=== PATIENT | female | born 1940 | race Caucasian/White ===

== ENCOUNTER 2020-05-05 06:12 | Outpatient (REF) | payer MEDICARE, SELFPAY ==
[2020-05-05 08:24] LABS: Alanine Aminotransferase 15 U/L (0-31); Aspartate Amino Transferase 21 U/L (5-31); Cholesterol 168 mg/dL; HDL Cholesterol 54 mg/dL; LDL Cholesterol Calculated 103 mg/dl; Triglycerides 59 mg/dL
== END 2020-05-05 06:13 | disposition home or self-care (01) ==
LOC: HO.LAB 06:12
PROVIDERS: Visit Provider Internal Medicine
DX: E78.5 Hyperlipidemia, unspecified (principal); M85.852 Other specified disorders of bone density and structure, left thigh; I10 Essential (primary) hypertension
CPT/HCPCS: 80061; 84450; 84460

== ENCOUNTER 2020-09-29 06:12 | Outpatient (REF) | payer MEDICARE, SELFPAY ==
[2020-09-29 08:11] LABS: Alanine Aminotransferase 19 U/L (0-31); Anion Gap 11 (12-20); Aspartate Amino Transferase 24 U/L (5-31); Blood Urea Nitrogen 16 mg/dL (9-16); Calcium 9.2 mg/dL (8.4-10.2); Carbon Dioxide 30 mmol/L (22-29); Chloride 108 mmol/L (96-108); Cholesterol 162 mg/dL; Estimated Glomerular Filt Rate > 60; Glucose Fasting 96 mg/dL (60-99); HDL Cholesterol 53 mg/dL; LDL Cholesterol Calculated 97 mg/dl; Sodium 144 mmol/L (135-145); Triglycerides 64 mg/dL
[2020-09-29 08:36] LABS: Vitamin D 25-OH Total 62.9 ng/mL (>30)
== END 2020-09-29 06:13 | disposition home or self-care (01) ==
LOC: HO.LAB 06:12
PROVIDERS: PCP Internal Medicine; Visit Provider Internal Medicine
DX: I10 Essential (primary) hypertension (principal); E78.5 Hyperlipidemia, unspecified; Z78.0 Asymptomatic menopausal state
CPT/HCPCS: 36415; 80048; 80061; 82306; 84450; 84460

== ENCOUNTER 2021-05-10 06:46 | Outpatient (REF) | payer MEDICARE, SELFPAY ==
[2021-05-10 08:08] LABS: Alanine Aminotransferase 22 U/L (0-31); Anion Gap 12 (12-20); Aspartate Amino Transferase 26 U/L (5-31); Blood Urea Nitrogen 17 mg/dL (9-16); Calcium 9.5 mg/dL (8.4-10.2); Carbon Dioxide 29 mmol/L (22-29); Chloride 105 mmol/L (96-108); Cholesterol 178 mg/dL; Estimated Glomerular Filt Rate > 60; Glucose Fasting 91 mg/dL (60-99); HDL Cholesterol 52 mg/dL; LDL Cholesterol Calculated 109 mg/dl; Potassium 4.8 mmol/L (3.3-5.1); Sodium 141 mmol/L (135-145); Triglycerides 85 mg/dL
== END 2021-05-10 06:47 | disposition home or self-care (01) ==
LOC: HO.LAB 06:46
PROVIDERS: PCP Internal Medicine; Visit Provider Internal Medicine
DX: E78.5 Hyperlipidemia, unspecified (principal); I10 Essential (primary) hypertension; Z78.0 Asymptomatic menopausal state
CPT/HCPCS: 36415; 80048; 80061; 82306; 84450; 84460

== ENCOUNTER 2021-10-29 06:30 | Outpatient (REF) | payer MEDICARE, SELFPAY ==
[2021-10-29 07:45] LABS: Alanine Aminotransferase 18 U/L (0-31); Anion Gap 13 (12-20); Aspartate Amino Transferase 22 U/L (5-31); Blood Urea Nitrogen 16 mg/dL (9-16); Carbon Dioxide 28 mmol/L (22-29); Chloride 106 mmol/L (96-108); Cholesterol 208 mg/dL; Estimated Glomerular Filt Rate > 60; Glucose Fasting 104 mg/dL (60-99); HDL Cholesterol 53 mg/dL; LDL Cholesterol Calculated 139 mg/dl; Potassium 4.7 mmol/L (3.3-5.1); Sodium 142 mmol/L (135-145); Triglycerides 83 mg/dL
[2021-10-29 08:07] LABS: Vitamin D 25-OH Total 48.9 ng/mL (>30)
== END 2021-10-29 06:31 | disposition home or self-care (01) ==
LOC: HO.LAB 06:30
PROVIDERS: PCP Internal Medicine; Visit Provider Internal Medicine
DX: E78.5 Hyperlipidemia, unspecified (principal); I10 Essential (primary) hypertension; N95.9 Unspecified menopausal and perimenopausal disorder
CPT/HCPCS: 36415; 80048; 80061; 82306; 84450; 84460

== ENCOUNTER → 2022-01-08 08:57 | Outpatient (BNVA) | payer MEDICARE, SELFPAY | PROVIDERS: PCP Internal Medicine; Visit Provider Surgery Vascular Surgery | DX: I83.11 Varicose veins of right lower extremity with inflammation (principal) | CPT/HCPCS: 99202 ==

== ENCOUNTER 2022-03-11 10:03 | Outpatient (REF) | payer MEDICARE, SELFPAY ==
--- NOTE | ~2022-03-11 | US_ITS ---
EXAMINATION: US VENOUS REFLUX/INSUFFICIENCY CLINICAL INFORMATION: c Patient states having had previous vein procedure on each leg, though is unsure what. COMPARISON: Ultrasound 08/30/2008 TECHNIQUE: Bilateral lower extremity venous insufficiency ultrasound was performed with velocity measurements. Color flow Doppler imaging was performed. FINDINGS: RIGHT SIDE: GREATER SAPHENOUS VEIN: The right saphenofemoral junction measures 0.9cm. The reflux time is greater than 2216 ms. Proximal thigh measures 0.5cm. Reflux time is 0ms. The great saphenous vein is not visualized from the level of the mid thigh to the level of the proximal calf. Mid calf measures 0.3cm. Reflux time is greater than 2736ms. At the level of the ankle it measures0.3cm. Reflux time is greater than 2760ms. There is a lateral accessory saphenous which measures 3 mm at the saphenofemoral junction and does not demonstrate significant reflux. At the mid thigh measures 3 mm and does not demonstrate significant reflux. SMALL SAPHENOUS VEIN: The upper right small saphenous vein measures 0.4 cm. Reflux time is 0ms. The midcalf small saphenous vein measures 0.4cm. Reflux time is 0ms. The distal calf small saphenous vein measures 0.3 cm. Reflux time is 1300 ms. Vein of Giacomini is visualized, measures 0.4 cm in diameter and has reflux time 2128 ms. There are 2 calf senior staff psychologist veins which measure 0.4 and 0.3 cm. Neither of these vessels demonstrate reflux. There are several varicose veins visualized. There is a 0.3 cm varicosity originating from the small saphenous vein with reflux time of 752 ms. There is a second 0.5 cm varicosity originating from the small saphenous vein with reflux time greater than 2848 ms. There is a 0.7 cm varicosity originating from the saphenofemoral junction which does not demonstrate reflux. There is a 0.5 cm varicosity originating from the midportion of the accessory saphenous vein with reflux time 2912 ms. There is a 0.4 cm varicosity originating from the great saphenous vein at the mid calf with reflux time greater than 3148 ms. LEFT SIDE: GREATER SAPHENOUS VEIN: The left saphenofemoral junction measures 0.4cm. The reflux time is 0 ms. No other portion of the great saphenous vein is visualized. SMALL SAPHENOUS VEIN: The upper left small saphenous vein measures 0.3 cm. Reflux time is 0ms. The mid calf small saphenous vein measures 0.2cm. Reflux time is 0ms The distal calf small saphenous vein measures 0.1 cm. Reflux time is 0 ms. There is a 0.2 cm senior staff psychologist vein at the proximal calf and a 0.2 cm senior staff psychologist vein at the mid calf. Neither of these vessels demonstrate reflux. US/US venous duplex LE BI IMPRESSION: No evidence of deep venous thrombosis. On the right there is reflux time of 804 ms at the midportion of the femoral vein. No reflux is seen within the deep system on the left. On the right there is reflux at the saphenofemoral junction, midcalf and ankle segments of the great saphenous vein as well as within the distal aspect of the small saphenous vein and vein of Giacomini. There are multiple varicosities visualized on the right which measure from 3 to 7 mm with reflux time ranging from 752 ms to greater than 3148 ms. On the left the great saphenous vein is not visualized beyond the level of the saphenofemoral junction, possibly relating to prior vein procedure. No venous reflux is demonstrated on the left.
== END 2022-03-11 10:04 | disposition home or self-care (01) ==
LOC: HO.US 10:03
PROVIDERS: Visit Provider Surgery Vascular Surgery
DX: I83.11 Varicose veins of right lower extremity with inflammation (principal)
CPT/HCPCS: 93970

== ENCOUNTER → 2022-03-14 08:53 | Outpatient (BNVA) | payer MEDICARE, SELFPAY | PROVIDERS: PCP Internal Medicine; Visit Provider Surgery Vascular Surgery | DX: I83.11 Varicose veins of right lower extremity with inflammation (principal) | CPT/HCPCS: 99212 ==

== ENCOUNTER → 2022-03-18 09:03 | Day surgery (SDC) | payer MEDICARE, SELFPAY ==
--- NOTE | 2022-03-15 10:56 | HO.ANESPROP2 ---
HPI - Anesthesia Eval Consult details Narrative: 81yo F for Right Micro Phlebectomy Pt cx'd DOS for new onset afib/flutter. Workload sent to patient's PCP (Dr Montoya) for f/u and optimization. [facility] [place] Active Problems Active Problems: All Active Problems (Updated 01/09/22 @ 16:25 by Frankie Leon MD) Varicose veins of right lower extremity with inflammation (Acute) Varicose veins of right lower extremity with pain (Acute) Difficulty sleeping (Acute) Menopause (Acute) Dyslipidemia (Acute) Essential hypertension (Acute) Past Medical History Medical History Difficulty sleeping Dyslipidemia Essential hypertension Menopause Varicose veins of right lower extremity with pain Family History Family History Father No problems noted. Mother No problems noted. Surgical History Surgical History H/O: hysterectomy History of back surgery Hx of esophagogastroduodenoscopy Hx of vein stripping Social History Social History Housing: House Alcohol intake: never Patient Tobacco Use Status: Never used Tobacco e-Cigarette/Vaping Use: Never Used Use of substances other than those prescribed or required for medical reasons: No Are you DNR?: Yes Advance Directives: No Advance Directives Information Provided: Yes service: No Current occupational status: retired Cognitive needs: No Hearing needs: No Vision needs: Yes Meds Allergies Allergy/AdvReac Type Severity Reaction Status Date / Time No Known Allergies Allergy Verified 03/18/22 09:19 Home Medications Medication Instructions Recorded Confirmed Last Taken Type flu vacc [id number](65yr up)-PF 240 ml IM 06/05/20 05/28/21 Unknown History mcg/0.7 mL intramuscular syringe cholecalciferol (vitamin D3) 50 50 mcg PO DAILY 11/28/21 11/28/21 Unknown History mcg (2,000 unit) capsule Exam Exam Date and Time: March 15, 2022 1056 Pertinent Lab Results Pertinent Lab Results: Laboratory Tests 10/29/21 06:42 Sodium 142 Potassium 4.7 Chloride 106 Carbon Dioxide 28 BUN 16 Creatinine 0.83 Assessment and Plan Assessment Anesthesia Assessment: Chart Reviewed
[2022-03-18 09:22] VITALS: BP 153/64; PULSE 59; RESP 16; TEMP 36.2; O2SAT 100; BMI 23.4
--- NOTE | 2022-03-18 09:27 | PC.NURSE ---
Patient states that she has filled out paperwork with her PCP deeming she has a DNR code status. Patient did not bring paperwork with her today. No documents scanned into expanse regarding this. Per patient, her Health Care Proxy is her daughter Loraine Ceballos, phone number is [phone].
--- NOTE | 2022-03-18 10:03 | ECG_ITS ---
Test Reason : arrhythmias Blood Pressure : / mmHG Vent. Rate : 063 BPM Atrial Rate : 063 BPM P-R Int : 166 ms QRS Dur : 078 ms QT Int : 414 ms P-R-T Axes : 062 -02 028 degrees QTc Int : 423 ms Sinus rhythm with Premature atrial complexes Otherwise normal ECG No previous ECGs available Referred By: Bandar Menon Electronically Signed By:HEBER GLASGOW
[2022-03-18] MEDS: Lactated Ringers 1,000 ML 100 ML IVCONT (10:23)
== END ==
PROVIDERS: Visit Provider Surgery Vascular Surgery
DX: I83.11 Varicose veins of right lower extremity with inflammation (principal); Z53.09 Procedure and treatment not carried out because of other contraindication; I48.91 Unspecified atrial fibrillation
CPT/HCPCS: 93005; J0690; J3010

== ENCOUNTER → 2022-04-24 10:18 | Outpatient (REF) | payer OTHER, SELFPAY ==
--- NOTE | 2022-04-24 10:21 | CA_ITS ---
Transthoracic Echocardiogram Patient (Last, First, Middle): Lexi Eason, Gender: Female Date of : 1940 Age: 81 Procedure Date: 04/24/2022 Procedure Type: Transthoracic Echocardiogram Location: OP Height: 157.48 cm Weight: 54.43 kg BSA: 1.54 m2 Heart Rate: 57 bpm BP: 155 / 75 mmHg Golf Ball Inspector: JIHAN Referring MD: Mali Oakes MD Symptoms: I49.9 - Cardiac arrhythmia, unspecified Study Quality: Good ECG Rhythm: Bradycardia Conclusions: - The left ventricular systolic function is normal. The calculated ejection fraction is 65% by biplane method. - No obvious valvular pathology seen on this study. Findings Left Ventricle Normal left ventricular cavity size. There is normal left ventricular wall thickness. The left ventricular systolic function is normal. The calculated ejection fraction is 65% by biplane method. There is no evidence of regional wall motion abnormalities. Diastolic function is normal for age. Right Ventricle Normal right ventricular cavity size and systolic function. Atria Both atria are normal in size. Aortic Valve The aortic valve was not well visualized. There is no aortic valve stenosis. There is no aortic valve regurgitation. Mitral Valve The mitral valve appears normal. There is trace mitral valve regurgitation. There is no mitral valve stenosis. Pulmonic Valve The pulmonic valve is likely normal. Tricuspid Valve Normal tricuspid valve structure. There is no tricuspid valve regurgitation. Tricuspid regurgitation envelope is inadequate for calculation of right ventricular systolic pressure. Great Vessels The asc aorta is normal in size. Venous The inferior vena cava is normal in size and collapses greater than 50% with inspiration. Pericardium/Pleural There is no evidence of pericardial effusion. Prior Study Comparison No prior study available for comparison. Recommendations, Care & Conclusions No obvious valvular pathology seen on this study. Measurements 2D Linear Measurements IVSd: 0.86 0.6-0.9/0.6-1.0 cm LVIDd: 3.82 3.9-5.3/4.2-5.9 cm LVIDd Index: 2.48 2.4-3.2/2.2-3.1 cm/m2 LVIDs: 2.99 2.0-3.6 cm LVPWd: 0.94 0.7-1.1 cm LA Diam: 3.10 2.7-3.8/3.0-4.0 cm LAIDs Index: 2.01 1.5-2.3 cm/m2 LV Mass: 126.73 67-162/88-224 g LV Mass Index: 82.29 43-95/49-115 g/m2 LVOT Diam: 2.10 3.0+(-)1.3 cm 2D Systolic Function EF 4C: 59.30 >55% EF 2C: 68.80 >55% EF BiP: 65.10 >55% Mitral Valve MV Pk E: 0.81 MV PK A: 0.87 MV Decel Time: 181.00 E/A: 0.90 E'Lateral: 7.83 E'Medial: 5.87 E/E' Med: 13.90 E/E' Lat: 10.40 PHT: 53.00 MVA PHT: 4.15 Decel [place]: 4.50 Aortic Valve AoV Pk Patrick: 1.10 AoV Mn Patrick: 0.75 AoV VTI: 0.29 AoV Pk Grad: 5.00 Aov Mn Grad: 3.00 CHANDA Cont.VTI: 2.34 LVOT LVOT Pk Patrick: 0.71 LVOT Mn Patrick: 0.53 LVOT VTI: 0.19 LVOT Pk Grad: 2.00 LVOT Mn Grad: 1.00 LVOT Diam: 2.10 LVOT Area: 3.46 Diastolic Function MV Pk E: 0.81 MV Pk A: 0.87 E/A: 0.90 E'Medial: 5.87 E/E' Med: 13.90 E' Laterial: 7.83 E/E' Lat: 10.40 Right Ventricle TAPSE (mm): 26.50 TVS' Patrick: 12.10 Tricuspid Valve RA Press: 3.00 Great Vessels Aorta Sinus of Valsalva: 3.00 2.0-3.5 cm Ao Asc: 3.20 2.1-3.4 cm Pulmonary Valve PV Pk Patrick: 0.80 Peak PV Grad: 3.00 Updated in Other Vendor System with Status of Final Jeffrey Diaz MD electronically signed on 04/25/2022 2:21:46 PM with status of Final
--- NOTE | 2022-04-24 10:21 | HM_ITS ---
* Total monitoring time 1 day. * Underlying rhythm is sinus. Average rate 69/Min. Range 49 to 119/Min. * Rare supraventricular complexes. [place] less than 1%. No significant runs. * No significant bradycardia or pauses. * No patient diary. MTDD
== END ==
LOC: HO.CARD 10:18
PROVIDERS: Visit Provider Internal Medicine
DX: I49.9 Cardiac arrhythmia, unspecified (principal)
CPT/HCPCS: 93226; 93242; 93306

== ENCOUNTER 2022-05-14 11:05 | Outpatient (REF) | payer MEDICARE, SELFPAY ==
[2022-05-14 14:04] LABS: Appearance Urine Clear; Color Urine Yellow; Glucose Urine UA Negative (Negative); Leukocyte Esterase Urine Negative (Negative); Nitrite Urine Negative (Negative); PH 6.5 (5.0-9.0); Specific Gravity - Urine <= 1.005 (1.005-1.025); Urine Blood Negative (Negative); Urine Ketones Negative (Negative); Urine Protein Negative (Neg-Trace)
[2022-05-14 14:18] LABS: MANUAL DIFF FLAG NO
[2022-05-14 14:20] LABS: Basophils Absolute Auto 0.1 X10*3/uL (0.0-0.2); Basophils Percent Auto 0.6 % (0-2); Eosinophils Absolute Auto 0.1 X10*3/uL (0.0-0.4); Eosinophils Percent Auto 0.7 % (0-4); Hematocrit 41.3 % (37.0-47.0); Hemoglobin 13.3 g/dl (12.0-16.0); Imm Gran Abs Auto 0.03 X10*3/uL (0.00-0.03); Imm Gran Pct Auto 0.4 % (0.0-0.4); Lymphocytes Absolute Auto 1.9 X10*3/uL (1.2-4.9); Lymphocytes Percent Auto 23.1 % (20-40); Mean Corpuscular HGB Conc 32.2 g/dl (31.0-35.0); Mean Corpuscular Hemoglobin 29.4 pg (27.0-33.0); Mean Corpuscular Volume 91.2 fL (80.0-98.0); Mean Platelet Volume 11.7 fL (9.4-12.3); Monocytes Absolute Auto 1.1 X10*3/uL (0.1-1.2); Monocytes Percent Auto 13.1 % (2-11); Neutrophils Absolute Auto 5.1 x10*3/uL (2.0-8.3); Neutrophils Percent Auto 62.1 % (45-73); Platelet Count 215 X10*3/uL (160-400); Red Blood Count 4.53 X10*6/uL (4.20-5.50); Red Cell Distribution Width 13.2 % (11.0-16.0); White Blood Count 8.3 X10*3/uL (4.8-10.8)
[2022-05-14 14:27] LABS: Estimated Average Glucose 117 mg/dL; Hemoglobin A1c % 5.7 %
[2022-05-14 14:48] LABS: Alanine Aminotransferase 14 U/L (0-31); Albumin Level 4.6 g/dL (3.5-5.0); Alkaline Phosphatase 74 U/L (39-117); Anion Gap 14 (12-20); Aspartate Amino Transferase 19 U/L (5-31); Bilirubin Total 0.6 mg/dL (0.0-1.0); Blood Urea Nitrogen 14 mg/dL (9-16); Calcium 9.9 mg/dL (8.4-10.2); Carbon Dioxide 27 mmol/L (22-29); Chloride 104 mmol/L (96-108); Estimated Glomerular Filt Rate > 60; Glucose Random 95 mg/dL (60-115); Potassium 4.2 mmol/L (3.3-5.1); Sodium 141 mmol/L (135-145); Total Protein 7.7 g/dL (6.5-8.0)
[2022-05-17 09:47] LABS: LDL Cholesterol Direct 106 mg/dL (<100)
== END 2022-05-14 11:06 | disposition home or self-care (01) ==
LOC: HO.HMGCLDS 11:05
PROVIDERS: PCP Internal Medicine; Visit Provider Internal Medicine
DX: R10.2 Pelvic and perineal pain (principal); R73.01 Impaired fasting glucose; I49.9 Cardiac arrhythmia, unspecified; F41.1 Generalized anxiety disorder; E78.5 Hyperlipidemia, unspecified; I10 Essential (primary) hypertension
CPT/HCPCS: 36415; 80053; 81003; 83036; 83721; 85025

== ENCOUNTER → 2022-05-15 08:21 | Outpatient (BNVA) | payer MEDICARE, SELFPAY | PROVIDERS: PCP Internal Medicine; Referring Provider Internal Medicine; Visit Provider Internal Medicine Cardiovascular Disease | DX: Z01.810 Encounter for preprocedural cardiovascular examination (principal); I49.9 Cardiac arrhythmia, unspecified | CPT/HCPCS: 93005; 99202 ==

== ENCOUNTER 2022-06-28 07:34 | Outpatient (REF) | payer MEDICARE, SELFPAY ==
--- NOTE | ~2022-06-28 | US_ITS ---
EXAMINATION: US ABDOMEN COMPLETE CLINICAL INFORMATION: Left lower quadrant pain. COMPARISON: CT abdomen 10/22/2006. TECHNIQUE: Real-time imaging of the abdominal viscera. FINDINGS: PANCREAS: Normal. ABDOMINAL AORTA: The proximal, mid, and distal segments are normal in caliber. INFERIOR VENA CAVA: Visualized portions are normal. LIVER: Normal size, shape and echogenicity. There are two lobulated cystic appearing lesions in the right hepatic lobe measuring 1.6 x 1.6 x 1.4 cm and 2.5 x 1.3 x 1.5, which demonstrate multiple internal septations. GALLBLADDER: Hyperechoic mural focus in the fundus with associated comet tail artifact, favoring to represent focal adenomyomatosis. No evidence of gallbladder wall thickening. No pericholecystic free fluid. Negative Dan's sign. COMMON BILE DUCT: Normal in caliber measuring 0.4 cm in diameter. RIGHT KIDNEY: Normal. No hydronephrosis. No renal calculi or focal parenchymal lesions. The kidney measures 9.6 cm in maximum dimension. LEFT KIDNEY: Normal. No hydronephrosis. No renal calculi or focal parenchymal lesions. The kidney measures 7.9 cm in maximum dimension. SPLEEN: Normal. The spleen measures 9.3 cm in maximum dimension. FREE FLUID: None. US/US abdomen complete IMPRESSION: 1. There are two lobulated cystic appearing lesions in the right hepatic lobe with multiple internal septations. While these could represent complex cysts, further characterization with an MR of the abdomen with and without intravenous contrast is recommended. 2. Focal adenomyomatosis of the gallbladder.
== END 2022-06-28 07:35 | disposition home or self-care (01) ==
LOC: HO.US 07:34
PROVIDERS: PCP Internal Medicine; Visit Provider Internal Medicine
DX: R10.32 Left lower quadrant pain (principal)
CPT/HCPCS: 76700

== ENCOUNTER 2022-07-22 08:50 | Outpatient (REF) | payer MEDICARE, SELFPAY ==
--- NOTE | ~2022-07-22 | MR_ITS ---
EXAMINATION: MR ABDOMEN WITHOUT AND WITH CONTRAST CLINICAL INFORMATION: Lobulated septated cystic lesion in liver. Liver disease. COMPARISON: Abdomen ultrasound from 06/28/2022. TECHNIQUE: MR abdomen was performed without and with use of 5.5 mL intravenous Gadavist. Postcontrast images are performed in multiphase dynamic sequences. Imaging was performed in 3 planes. FINDINGS: LUNG BASES: Normal. No pulmonary consolidation or pleural effusion at either lung base. LIVER: Liver has normal size, contour and parenchymal signal. No cirrhotic morphology or steatosis. A few cysts are present in the right and left lobes of the liver. The findings include a simple cyst that measures up to 2 cm maximum dimension in the posteromedial aspect of hepatic segment 7 and a lobulated cyst with thin septation that measures up to 1.6 cm maximum dimension in the lateral aspect of hepatic segment 6. No suspicious-appearing liver lesion or intrahepatic ductal dilatation. GALLBLADDER AND BILIARY TREE: The gallbladder is physiologically distended. There is mild thickening and mild cystlike signal change of the wall the gallbladder fundus from adenomyomatosis. No evidence of cholelithiasis. No gallbladder wall edema or pericholecystic fluid. The common bile duct is normal and measures up to 0.5 cm maximum transverse diameter. PANCREAS: Normal. No edema, pancreatic ductal dilatation or mass. SPLEEN: Normal. ADRENAL GLANDS: Normal. KIDNEYS: Kidneys are normal in size and enhance symmetrically. No hydronephrosis or perinephric edema. 0.8 cm simple cyst of the upper pole of the left kidney. No renal imaging follow-up is recommended for a simple cyst. BOWEL AND PERITONEUM: Stomach is unremarkable. No dilated loops of bowel. No bowel wall thickening or mesenteric fat stranding. No ascites. VASCULATURE: Abdominal aorta is normal in caliber and its visualized branches are widely patent. Inferior vena cava is normal. The splenic, portal and hepatic veins are normal. LYMPH NODES: No pathologic sized lymph nodes in the abdomen. SKELETAL: Unremarkable. MR/MR abdomen wo/w con IMPRESSION: * There is focal adenomyomatosis of the gallbladder fundus. * A few benign cysts are present within the liver. No suspicious-appearing liver lesions.
== END 2022-07-22 08:51 | disposition home or self-care (01) ==
LOC: HO.MRI 08:50
PROVIDERS: Visit Provider Psychiatry & Neurology Neurology
DX: K76.9 Liver disease, unspecified (principal)
CPT/HCPCS: 74183; A9585

== ENCOUNTER → 2022-10-01 11:01 | Outpatient (BNVA) | payer MEDICARE, SELFPAY | PROVIDERS: PCP Internal Medicine; Visit Provider Internal Medicine | DX: K76.89 Other specified diseases of liver (principal); D13.5 Benign neoplasm of extrahepatic bile ducts | CPT/HCPCS: 99202 ==

== ENCOUNTER 2022-11-14 06:49 | Outpatient (REF) | payer MEDICARE, SELFPAY ==
[2022-11-14 06:58] LABS: MANUAL DIFF FLAG NO
[2022-11-14 07:58] LABS: Basophils Absolute Auto 0.1 X10*3/uL (0.0-0.2); Basophils Percent Auto 1.3 % (0-2); Eosinophils Absolute Auto 0.2 X10*3/uL (0.0-0.4); Eosinophils Percent Auto 4.2 % (0-4); Hemoglobin 13.2 g/dl (12.0-16.0); Imm Gran Abs Auto 0.01 X10*3/uL (0.00-0.03); Imm Gran Pct Auto 0.2 % (0.0-0.4); Lymphocytes Percent Auto 41.9 % (20-40); Mean Corpuscular HGB Conc 32.2 g/dl (31.0-35.0); Mean Corpuscular Hemoglobin 29.5 pg (27.0-33.0); Mean Corpuscular Volume 91.5 fL (80.0-98.0); Mean Platelet Volume 11.2 fL (9.4-12.3); Monocytes Absolute Auto 0.6 X10*3/uL (0.1-1.2); Monocytes Percent Auto 13.3 % (2-11); Neutrophils Absolute Auto 1.9 x10*3/uL (2.0-8.3); Neutrophils Percent Auto 39.1 % (45-73); Platelet Count 192 X10*3/uL (160-400); Red Blood Count 4.48 X10*6/uL (4.20-5.50); Red Cell Distribution Width 13.1 % (11.0-16.0); White Blood Count 4.8 X10*3/uL (4.8-10.8)
[2022-11-14 08:09] LABS: Estimated Average Glucose 114 mg/dL; Hemoglobin A1c % 5.6 %
[2022-11-14 08:35] LABS: Alanine Aminotransferase 26 U/L (0-31); Albumin Level 4.3 g/dL (3.5-5.0); Alkaline Phosphatase 63 U/L (39-117); Anion Gap 12 (12-20); Aspartate Amino Transferase 29 U/L (5-31); Bilirubin Total 0.7 mg/dL (0.0-1.0); Blood Urea Nitrogen 11 mg/dL (9-16); Calcium 9.5 mg/dL (8.4-10.2); Carbon Dioxide 28 mmol/L (22-29); Chloride 107 mmol/L (96-108); Cholesterol 183 mg/dL; Estimated Glomerular Filt Rate > 60; Glucose Fasting 101 mg/dL (60-99); HDL Cholesterol 49 mg/dL; LDL Cholesterol Calculated 118 mg/dl; Potassium 4.6 mmol/L (3.3-5.1); Sodium 142 mmol/L (135-145); Triglycerides 83 mg/dL
== END 2022-11-14 06:50 | disposition home or self-care (01) ==
LOC: HO.LAB 06:49
PROVIDERS: PCP Internal Medicine; Visit Provider Internal Medicine
DX: F41.1 Generalized anxiety disorder (principal); E78.5 Hyperlipidemia, unspecified; G47.9 Sleep disorder, unspecified; I10 Essential (primary) hypertension; I83.811 Varicose veins of right lower extremity with pain; R73.01 Impaired fasting glucose
CPT/HCPCS: 36415; 80053; 80061; 83036; 84443; 85025

== ENCOUNTER 2023-06-02 06:40 | Outpatient (REF) | payer MEDICARE, SELFPAY ==
[2023-06-02 06:48] LABS: MANUAL DIFF FLAG NO
[2023-06-02 07:47] LABS: Basophils Percent Auto 0.6 % (0-2); Eosinophils Absolute Auto 0.2 X10*3/uL (0.0-0.4); Eosinophils Percent Auto 3.8 % (0-4); Hematocrit 40.3 % (37.0-47.0); Hemoglobin 13.2 g/dl (12.0-16.0); Imm Gran Abs Auto 0.02 X10*3/uL (0.00-0.03); Imm Gran Pct Auto 0.4 % (0.0-0.4); Lymphocytes Absolute Auto 2.2 X10*3/uL (1.2-4.9); Lymphocytes Percent Auto 43.8 % (20-40); Mean Corpuscular HGB Conc 32.8 g/dl (31.0-35.0); Mean Corpuscular Hemoglobin 30.1 pg (27.0-33.0); Mean Corpuscular Volume 91.8 fL (80.0-98.0); Mean Platelet Volume 11.4 fL (9.4-12.3); Monocytes Absolute Auto 0.6 X10*3/uL (0.1-1.2); Monocytes Percent Auto 12.8 % (2-11); Neutrophils Absolute Auto 1.9 x10*3/uL (2.0-8.3); Neutrophils Percent Auto 38.6 % (45-73); Platelet Count 195 X10*3/uL (160-400); Red Blood Count 4.39 X10*6/uL (4.20-5.50); Red Cell Distribution Width 12.9 % (11.0-16.0)
[2023-06-02 08:10] LABS: Alanine Aminotransferase 23 U/L (0-31); Albumin Level 4.3 g/dL (3.5-5.0); Alkaline Phosphatase 57 U/L (39-117); Anion Gap 13 (12-20); Aspartate Amino Transferase 31 U/L (5-31); Bilirubin Total 0.7 mg/dL (0.0-1.0); Blood Urea Nitrogen 17 mg/dL (9-16); Carbon Dioxide 27 mmol/L (22-29); Chloride 109 mmol/L (96-108); Cholesterol 189 mg/dL (<200); Estimated Glomerular Filt Rate > 60; Glucose Fasting 99 mg/dL (60-99); HDL Cholesterol 48 mg/dL (>40); LDL Cholesterol Calculated 120 mg/dL (<100); Potassium 4.6 mmol/L (3.3-5.1); Sodium 144 mmol/L (135-145); Total Protein 7.3 g/dL (6.5-8.0); Triglycerides 106 mg/dL (<150)
== END 2023-06-02 06:41 | disposition home or self-care (01) ==
LOC: HO.LAB 06:40
PROVIDERS: PCP Internal Medicine; Visit Provider Internal Medicine
DX: Z00.01 Encounter for general adult medical examination with abnormal findings (principal); E78.5 Hyperlipidemia, unspecified; R73.01 Impaired fasting glucose; I10 Essential (primary) hypertension
CPT/HCPCS: 36415; 80053; 80061; 85025

== ENCOUNTER 2023-06-11 09:42 | Outpatient (AMB) | payer MEDICARE, SELFPAY ==
[2023-06-11 09:45] VITALS: BP 126/64; BMI 25.2
--- NOTE | 2023-06-11 09:45 | A.OFFPC_ITS ---
Vital Signs 06/11/23 09:45 Height 5 ft Weight 129 lb 4 oz BMI 25.2 BP 126/64 Blood Pressure Location Rt brachial Position Sitting Intake Visit Reasons: 6 Month follow up Allergies No Known Allergies Allergy (Verified 06/11/23 09:45) Medication List - Last Reconciled 06/11/23 by Mali Oakes MD atorvastatin 10 mg PO DAILY 90 days cholecalciferol (vitamin D3) 50 mcg PO DAILY lisinopril 2.5 mg PO DAILY mirtazapine 7.5 mg PO BEDTIME Tobacco use date assessed: 06/11/23 Fall risk assessment: No Falls in past year Last assessed Fall Risk: 06/11/23 Dental Screening Dental Screen Date: 06/11/23 Did you have a dental visit in the last 12 months?: No Did you have a dental problem in the last 6 months where you did not have access to dental care?: No Was dental information given to patient?: No HPI 6 Month follow up HPI Details Patient is 82-year-old female came in today for her regular six-month follow-up appointment Patient is doing well offer no new complaints Still having difficulty sleeping, I prescribed mirtazapine 7.5 mg for the patient which seems to be a very small dose I have told her to take 2 or up to 3 tablets at night as needed She is taking atorvastatin 10 mg for lipid control and small dose of lisinopril 2.5 mg for blood pressure. She has impaired fasting sugar but hemoglobin A1c is stable. her after having a severe dementia. Follow-up 6 month labs to be done before visit [facility] Medical History Varicose veins of right lower extremity with pain Difficulty sleeping Menopause Dyslipidemia Essential hypertension Surgical History Hx of colonoscopy Hx of esophagogastroduodenoscopy Hx of vein stripping History of back surgery H/O: hysterectomy Family History Father No problems noted. Mother No problems noted. Social History Housing: House Alcohol intake: never Patient Tobacco Use Status: Never used Tobacco e-Cigarette/Vaping Use: Never Used service: No Current occupational status: retired Cognitive needs: No Hearing needs: No Vision needs: Yes Questionnaire PHQ-9 Over the last 2 weeks, how often have you been bothered by any of the following problems? 1. Little interest or pleasure in doing things: not at all 2. Feeling down, depressed, or hopeless: not at all 3. Trouble falling or staying asleep, or sleeping too much: not at all 4. Feeling tired or having little energy: not at all 5. Poor appetite or overeating: not at all 6. Feeling bad about yourself - or that you are a failure or have let yourself or your family down: not at all 7. Trouble concentrating on things, such as reading the newspaper or watching television: not at all 8. Moving or speaking so slowly that other people could have noticed. Or the opposite - being so fidgety or restless that you have been moving around a lot more than usual: not at all 9. Thoughts that you would be better off or of hurting yourself in some way: not at all Total score: 0 Depression Screening Interpretation: Negative Depression Screening Done: Yes 68907 - PHQ-9 Billing: Yes Source: Developed by Drs. Omar Rosen, Yamile Dickens, Bayron Umaña and colleagues, with an educational maurilio from [employer]. Thrive Questionnaire Date Thrive assessed: 06/11/23 I am a: Patient What is your living situation today?: I have a steady place to live Within the past 12 months, did the food you bought not last and you didn't have the money to get more?: Never true Within the past 12 months, did you worry whether your food would run out before you got money to buy more?: Never true Do you have trouble paying for medicines?: No Do you have trouble getting transportation to medical appointments?: No Do you have trouble paying your heating and electricity bill?: No Do you have trouble taking care of your child, family member or friend?: No Do you have trouble with day-to-day activities such as bathing, preparing meals, shopping, managing finances, etc.?: No Are you currently unemployed and looking for a job?: No Are you interested in more education?: Yes Please select the resources that you would like help with: None Currently or been in a relationship where the following occur: no concerns reported AUDIT C Alcohol Use Questionnaire (AUDIT-C) 1. How often do you have a drink containing alcohol?: Never 3. How often do you have six or more drinks on one occasion?: Never Total Score: 0 Score Reviewed/Action Taken: Yes DARIN-7 AMB Questionnaire DARIN-7 Date DARIN - 7 assessed: 06/11/23 Feeling nervous, anxious, or on edge: 0 = Not at all Not being able to stop or control worryin = Not at all Worrying too much about different things: 0 = Not at all Trouble relaxin = Not at all Being so restless that it is hard to sit still: 0 = Not at all Becoming easily annoyed or irritable: 0 = Not at all Feeling afraid as if something awful might happen: 0 = Not at all Total DARIN-7 score (0-4 normal; 5-9 mild; 10-14 moderate; 15-21 severe): 0 Source: Developed by Drs. Omar Rosen, Yamile Dickens, Bayron Umaña and colleagues, with an educational maurilio from [employer]. DARIN-7 Assessment Billing DARIN-7 Assessment Tool: DARIN-7 Assessment 10003 Review of Systems Const Denies chills and Denies fever(s) ENT Denies epistaxis and Denies nasal discharge Card Denies chest pain Resp Denies chest congestion, Denies cough and Denies hemoptysis GI Denies diarrhea and Denies nausea Skin/Breast Denies rash Neuro Reports no additional complaints Psych Reports no additional complaints Endo Reports no additional complaints Physical exam (Primary Care) Vital Signs: Last Vital Signs BP 126/64 06/11/23 09:45 BMI result Body Mass Index 25.2 Tobacco/Smoking Status: Tobacco use Status Tobacco use date assessed 06/11/23 06/11/23 09:48 Patient Tobacco Use Status Never used Tobacco 06/11/23 09:48 e-Cigarette/Vaping Use Never Used 06/11/23 09:48 PHQ-9: PHQ-9 Score PHQ-9: Total score 0 06/11/23 10:19 Depression Screening Interpretation: Negative Thrive Assessment: Date of Thrive Assessment Date Thrive assessed 06/11/23 06/11/23 10:19 Currently or been in a relationship where the following occur: no concerns reported Const General: cooperative, comfortable and no acute distress Orientation/consciousness: patient oriented x3 HENMT Head: Yes normocephalic Eyes General: appearance normal, both eyes and all related structures Neck Neck: Yes supple Resp Effort & Inspection: normal respiratory effort, no cough and no stridor Cardio Rhythm: regular rhythm Heart sounds: S1 normal heart sound present and S2 normal heart sound present Skin General skin exam: turgor normal Neuro General: patient oriented x3, tone normal and moves all extremities Extrem Right lower extremity: no edema Left lower extremity: no edema Assessment and Plan Assessment & Plan (1) Essential hypertension: Code(s): I10 - Essential (primary) hypertension (2) Peripheral vascular disease: Code(s): I73.9 - Peripheral vascular disease, unspecified (3) Impaired fasting blood sugar: Code(s): R73.01 - Impaired fasting glucose (4) Difficulty sleeping: Code(s): G47.9 - Sleep disorder, unspecified (5) Anxiety, generalized: Code(s): F41.1 - Generalized anxiety disorder (6) Lipid disorder: Code(s): E78.9 - Disorder of lipoprotein metabolism, unspecified Plan Patient is 82-year-old female came in today for her regular six-month follow-up appointment Patient is doing well offer no new complaints Still having difficulty sleeping, I prescribed mirtazapine 7.5 mg for the patient which seems to be a very small dose I have told her to take 2 or up to 3 tablets at night as needed She is taking atorvastatin 10 mg for lipid control and small dose of lisinopril 2.5 mg for blood pressure. She has impaired fasting sugar but hemoglobin A1c is stable. her after having a severe dementia. Follow-up 6 month labs to be done before visit Orders: Orders Complete Blood Count Auto Diff Today E78.9 - Disorder of lipoprotein metabolism, unspecified, F41.1 - Generalized anxiety disorder, G47.9 - Sleep disorder, unspecified, I10 - Essential (primary) hypertension, I73.9 - Peripheral vascular disease, unspecified, R73.01 - Impaired fasting glucose Comprehensive [place]. Panel Fast Today E78.9 - Disorder of lipoprotein metabolism, unspecified, F41.1 - Generalized anxiety disorder, G47.9 - Sleep disorder, unspecified, I10 - Essential (primary) hypertension, I73.9 - Peripheral vascular disease, unspecified, R73.01 - Impaired fasting glucose Lipid Panel Today E78.9 - Disorder of lipoprotein metabolism, unspecified, F41.1 - Generalized anxiety disorder, G47.9 - Sleep disorder, unspecified, I10 - Essential (primary) hypertension, I73.9 - Peripheral vascular disease, unspecified, R73.01 - Impaired fasting glucose Vitamin D 25-OH (D2 and D3) Today E78.9 - Disorder of lipoprotein metabolism, unspecified, F41.1 - Generalized anxiety disorder, G47.9 - Sleep disorder, unspecified, I10 - Essential (primary) hypertension, I73.9 - Peripheral vascular disease, unspecified, R73.01 - Impaired fasting glucose Coding Level of Care Code Est Pt Level 4 (95131) Diagnoses Essential hypertension I10 Peripheral vascular disease I73.9 Impaired fasting blood sugar R73.01 Difficulty sleeping G47.9 Anxiety, generalized F41.1 Lipid disorder E78.9 Additional Codes DARIN-7 Assessment Billing - DARIN-7 Assessment Tool: DARIN-7 Assessment 25725 ([id number])
== END 2023-06-11 10:15 | disposition home or self-care (01) ==
PROVIDERS: PCP Internal Medicine; Visit Provider Internal Medicine
DX: I10 Essential (primary) hypertension (principal); I73.9 Peripheral vascular disease, unspecified; R73.01 Impaired fasting glucose; G47.9 Sleep disorder, unspecified; F41.1 Generalized anxiety disorder; E78.9 Disorder of lipoprotein metabolism, unspecified; E78.5 Hyperlipidemia, unspecified
CPT/HCPCS: 99214

== ENCOUNTER 2023-12-08 06:10 | Outpatient (REF) | payer MEDICARE, SELFPAY ==
[2023-12-08 06:26] LABS: MANUAL DIFF FLAG NO
[2023-12-08 08:04] LABS: Basophils Percent Auto 0.8 % (0-2); Eosinophils Absolute Auto 0.4 X10*3/uL (0.0-0.4); Eosinophils Percent Auto 7.8 % (0-4); Hematocrit 37.4 % (37.0-47.0); Hemoglobin 12.4 g/dl (12.0-16.0); Imm Gran Abs Auto 0.01 X10*3/uL (0.00-0.03); Imm Gran Pct Auto 0.2 % (0.0-0.4); Lymphocytes Absolute Auto 2.3 X10*3/uL (1.2-4.9); Mean Corpuscular HGB Conc 33.2 g/dl (31.0-35.0); Mean Corpuscular Volume 90.3 fL (80.0-98.0); Mean Platelet Volume 11.9 fL (9.4-12.3); Monocytes Absolute Auto 0.7 X10*3/uL (0.1-1.2); Monocytes Percent Auto 13.4 % (2-11); Neutrophils Absolute Auto 1.6 x10*3/uL (2.0-8.3); Neutrophils Percent Auto 32.8 % (45-73); Platelet Count 163 X10*3/uL (160-400); Red Blood Count 4.14 X10*6/uL (4.20-5.50); Red Cell Distribution Width 13.1 % (11.0-16.0)
[2023-12-08 08:29] LABS: Alanine Aminotransferase 20 U/L (0-31); Albumin Level 4.2 g/dL (3.5-5.0); Alkaline Phosphatase 56 U/L (39-117); Anion Gap 11 (12-20); Aspartate Amino Transferase 25 U/L (5-31); Bilirubin Total 0.4 mg/dL (0.0-1.0); Blood Urea Nitrogen 17 mg/dL (9-16); Calcium 9.6 mg/dL (8.4-10.2); Carbon Dioxide 27 mmol/L (22-29); Chloride 108 mmol/L (96-108); Cholesterol 163 mg/dL (<200); Estimated Glomerular Filt Rate > 60; Glucose Fasting 98 mg/dL (60-99); HDL Cholesterol 48 mg/dL (>40); LDL Cholesterol Calculated 102 mg/dL (<100); Potassium 4.3 mmol/L (3.3-5.1); Sodium 142 mmol/L (135-145); Total Protein 7.2 g/dL (6.5-8.0); Triglycerides 65 mg/dL (<150)
[2023-12-12 12:43] LABS: Vitamin D 25-OH, D2 <4 ng/mL; Vitamin D 25-OH, D3 59 ng/mL; Vitamin D 25-OH, Total 59 ng/mL (30-100)
== END 2023-12-08 06:11 | disposition home or self-care (01) ==
LOC: HO.LAB 06:10
PROVIDERS: PCP Internal Medicine; Visit Provider Internal Medicine
DX: I10 Essential (primary) hypertension (principal); G47.9 Sleep disorder, unspecified; F41.1 Generalized anxiety disorder; R73.01 Impaired fasting glucose; I73.9 Peripheral vascular disease, unspecified; E78.9 Disorder of lipoprotein metabolism, unspecified
CPT/HCPCS: 36415; 80053; 80061; 82306; 85025

== ENCOUNTER 2023-12-16 10:10 | Outpatient (AMB) | payer MEDICARE, SELFPAY ==
[2023-12-16 10:18] VITALS: BP 132/60; PULSE 68; O2SAT 98; BMI 24.8
--- NOTE | 2023-12-16 10:18 | MHC.PC.OV ---
Vital Signs 12/16/23 10:18 Height 5 ft Weight 127 lb 4 oz BMI 24.8 BP 132/60 Blood Pressure Location Lt brachial Position Sitting Pulse 68 Pulse Source Pulse Oximeter Pulse Oximetry (%) 98 Oxygen Delivery Method Room Air Intake Visit Reasons: 6 Month follow up Allergies No Known Allergies Allergy (Verified 12/16/23 10:23) Medication List - Last Reconciled 12/16/23 by Mali Oakes MD atorvastatin 10 mg PO DAILY 90 days cholecalciferol (vitamin D3) 50 mcg PO DAILY lisinopril 2.5 mg PO DAILY mirtazapine 7.5 mg PO BEDTIME Tobacco use date assessed: 12/16/23 Fall risk assessment: No Falls in past year Last assessed Fall Risk: 12/16/23 Dental Screening Dental Screen Date: 12/16/23 Did you have a dental visit in the last 12 months?: Yes Did you have a dental problem in the last 6 months where you did not have access to dental care?: No Was dental information given to patient?: Patient has dentist HPI 6 Month follow up HPI Details Patient is 83-year-old female came in today for her regular six-month follow-up appointment Patient is due for eye exam, she already have appointment for Ophthalmology visit in April with Dr. Anthony Patient is requesting a referral to be created, which I did Patient is doing well offer no new complaints Still having difficulty sleeping, patient says that she off and on takes a medication however she is still sleeps only 4 hours However she is very active during the day and feels no tiredness or drowsiness. She has a vegetable garden and have lot of quiñones which keeps her busy Patient lives alone she has 3 daughters 1 of them lives nearby and does visit her. She is taking atorvastatin 10 mg for lipid control and small dose of lisinopril 2.5 mg for blood pressure. She has impaired fasting sugar but hemoglobin A1c is stable. her after having a severe dementia. Follow-up 6 month labs to be done before visit [facility] Medical History Varicose veins of right lower extremity with pain Difficulty sleeping Menopause Dyslipidemia Essential hypertension Surgical History Hx of colonoscopy Hx of esophagogastroduodenoscopy Hx of vein stripping History of back surgery H/O: hysterectomy Family History Father No problems noted. Mother No problems noted. Social History Housing: House Alcohol intake: never Patient Tobacco Use Status: Never used Tobacco e-Cigarette/Vaping Use: Never Used service: No Current occupational status: retired Cognitive needs: No Hearing needs: No Vision needs: Yes Questionnaire Thrive Questionnaire Date Thrive assessed: 06/11/23 AUDIT C Alcohol Use Questionnaire (AUDIT-C) 1. How often do you have a drink containing alcohol?: Never 3. How often do you have six or more drinks on one occasion?: Never Total Score: 0 Score Reviewed/Action Taken: Yes DARIN-7 AMB Questionnaire DARIN-7 Date DARIN - 7 assessed: 06/11/23 Source: Developed by Drs. Omar Rosen, Yamile Dickens, Bayron Umaña and colleagues, with an educational maurilio from [employer]. Review of Systems Const Denies chills and Denies fever(s) ENT Denies epistaxis and Denies nasal discharge Card Denies chest pain Resp Denies chest congestion, Denies cough and Denies hemoptysis GI Denies diarrhea and Denies nausea Skin/Breast Denies rash Neuro Reports no additional complaints Psych Reports no additional complaints Endo Reports no additional complaints Physical exam (Primary Care) Vital Signs: Last Vital Signs Pulse 68 12/16/23 10:18 BP 132/60 12/16/23 10:18 Pulse Ox 98 12/16/23 10:18 Oxygen Delivery Method Room Air 12/16/23 10:18 BMI result Body Mass Index 24.8 Tobacco/Smoking Status: Tobacco use Status Tobacco use date assessed 12/16/23 12/16/23 10:23 Patient Tobacco Use Status Never used Tobacco 12/16/23 10:18 e-Cigarette/Vaping Use Never Used 12/16/23 10:18 Thrive Assessment: Date of Thrive Assessment Date Thrive assessed 06/11/23 12/16/23 10:18 Const General: cooperative, comfortable and no acute distress Orientation/consciousness: patient oriented x3 HENMT Head: Yes normocephalic Eyes General: appearance normal, both eyes and all related structures Neck Neck: Yes supple Resp Effort & Inspection: normal respiratory effort, no cough and no stridor Cardio Rhythm: regular rhythm Heart sounds: S1 normal heart sound present and S2 normal heart sound present Skin General skin exam: turgor normal Neuro General: patient oriented x3, tone normal and moves all extremities Extrem Right lower extremity: no edema Left lower extremity: no edema Assessment and Plan Assessment & Plan (1) Lipid disorder: Code(s): E78.9 - Disorder of lipoprotein metabolism, unspecified (2) Peripheral vascular disease: Code(s): I73.9 - Peripheral vascular disease, unspecified (3) Impaired fasting blood sugar: Code(s): R73.01 - Impaired fasting glucose (4) Varicose veins of right lower extremity with pain: Code(s): I83.811 - Varicose veins of right lower extremity with pain (5) Difficulty sleeping: Code(s): G47.9 - Sleep disorder, unspecified (6) Essential hypertension: Code(s): I10 - Essential (primary) hypertension Plan Patient is 83-year-old female came in today for her regular six-month follow-up appointment Patient is due for eye exam, she already have appointment for Ophthalmology visit in April with Dr. Anthony Patient is requesting a referral to be created, which I did Patient is doing well offer no new complaints Still having difficulty sleeping, patient says that she off and on takes a medication however she is still sleeps only 4 hours However she is very active during the day and feels no tiredness or drowsiness. She has a vegetable garden and have lot of quiñones which keeps her busy Patient lives alone she has 3 daughters 1 of them lives nearby and does visit her. She is taking atorvastatin 10 mg for lipid control and small dose of lisinopril 2.5 mg for blood pressure. She has impaired fasting sugar but hemoglobin A1c is stable. her after having a severe dementia. She has large varicosities both lower legs, which does become painful at time if she is standing for prolonged periods of time However does not want to see a vascular specialist as this time. Follow-up 6 month labs to be done before visit Orders: Orders Lipid Panel Today E78.9 - Disorder of lipoprotein metabolism, unspecified, G47.9 - Sleep disorder, unspecified, I10 - Essential (primary) hypertension, I73.9 - Peripheral vascular disease, unspecified, I83.811 - Varicose veins of right lower extremity with pain, R73.01 - Impaired fasting glucose Complete Blood Count Auto Diff Today E78.9 - Disorder of lipoprotein metabolism, unspecified, G47.9 - Sleep disorder, unspecified, I10 - Essential (primary) hypertension, I73.9 - Peripheral vascular disease, unspecified, I83.811 - Varicose veins of right lower extremity with pain, R73.01 - Impaired fasting glucose Comprehensive [place]. Panel Fast Today E78.9 - Disorder of lipoprotein metabolism, unspecified, G47.9 - Sleep disorder, unspecified, I10 - Essential (primary) hypertension, I73.9 - Peripheral vascular disease, unspecified, I83.811 - Varicose veins of right lower extremity with pain, R73.01 - Impaired fasting glucose Referrals Ophthalmology Referral Z01.00 - Encounter for examination of eyes and vision without abnormal findings Coding Level of Care Code Est Pt Level 4 (79296) Complex EM visit Add On G2211 Diagnoses Lipid disorder E78.9 Peripheral vascular disease I73.9 Impaired fasting blood sugar R73.01 Varicose veins of right lower extremity with pain I83.811 Difficulty sleeping G47.9 Essential hypertension I10
== END 2023-12-16 10:33 | disposition home or self-care (01) ==
PROVIDERS: PCP Internal Medicine; Visit Provider Internal Medicine
DX: E78.9 Disorder of lipoprotein metabolism, unspecified (principal); I73.9 Peripheral vascular disease, unspecified; R73.01 Impaired fasting glucose; I83.811 Varicose veins of right lower extremity with pain; G47.9 Sleep disorder, unspecified; I10 Essential (primary) hypertension
CPT/HCPCS: 99214; G2211

== ENCOUNTER 2024-05-11 06:34 | Outpatient (REF) | payer MEDICARE, SELFPAY ==
[2024-05-11 06:50] LABS: MANUAL DIFF FLAG NO
[2024-05-11 07:25] LABS: Basophils Absolute Auto 0.1 X10*3/uL (0.0-0.2); Basophils Percent Auto 0.9 % (0-2); Eosinophils Absolute Auto 0.1 X10*3/uL (0.0-0.4); Eosinophils Percent Auto 2.2 % (0-4); Hematocrit 38.7 % (37.0-47.0); Imm Gran Abs Auto 0.01 X10*3/uL (0.00-0.03); Imm Gran Pct Auto 0.2 % (0.0-0.4); Lymphocytes Absolute Auto 2.1 X10*3/uL (1.2-4.9); Lymphocytes Percent Auto 37.8 % (20-40); Mean Corpuscular HGB Conc 33.6 g/dl (31.0-35.0); Mean Corpuscular Hemoglobin 30.7 pg (27.0-33.0); Mean Corpuscular Volume 91.3 fL (80.0-98.0); Mean Platelet Volume 11.4 fL (9.4-12.3); Monocytes Absolute Auto 0.7 X10*3/uL (0.1-1.2); Monocytes Percent Auto 13.1 % (2-11); Neutrophils Absolute Auto 2.6 x10*3/uL (2.0-8.3); Neutrophils Percent Auto 45.8 % (45-73); Platelet Count 199 X10*3/uL (160-400); Red Blood Count 4.24 X10*6/uL (4.20-5.50); Red Cell Distribution Width 13.1 % (11.0-16.0); White Blood Count 5.6 X10*3/uL (4.8-10.8)
[2024-05-11 07:46] LABS: Alanine Aminotransferase 29 U/L (0-31); Albumin Level 4.1 g/dL (3.5-5.0); Alkaline Phosphatase 57 U/L (39-117); Anion Gap 13 (12-20); Aspartate Amino Transferase 28 U/L (5-31); Bilirubin Total 0.6 mg/dL (0.0-1.0); Blood Urea Nitrogen 15 mg/dL (9-16); Calcium 9.8 mg/dL (8.4-10.2); Carbon Dioxide 27 mmol/L (22-29); Chloride 106 mmol/L (96-108); Cholesterol 186 mg/dL (<200); Estimated Glomerular Filt Rate > 60; Glucose Fasting 107 mg/dL (60-99); HDL Cholesterol 52 mg/dL (>40); LDL Cholesterol Calculated 115 mg/dL (<100); Potassium 4.5 mmol/L (3.3-5.1); Sodium 141 mmol/L (135-145); Total Protein 7.1 g/dL (6.5-8.0); Triglycerides 98 mg/dL (<150)
== END 2024-05-11 06:35 | disposition home or self-care (01) ==
LOC: HO.LAB 06:34
PROVIDERS: PCP Internal Medicine; Visit Provider Internal Medicine
DX: E78.9 Disorder of lipoprotein metabolism, unspecified (principal); I73.9 Peripheral vascular disease, unspecified; R73.01 Impaired fasting glucose; I83.811 Varicose veins of right lower extremity with pain; G47.9 Sleep disorder, unspecified; I10 Essential (primary) hypertension
CPT/HCPCS: 36415; 80053; 80061; 85025

== ENCOUNTER 2024-05-25 09:09 | Outpatient (AMB) | payer MEDICARE, SELFPAY ==
--- NOTE | 2024-05-25 09:11 | A.OFFPC_ITS ---
Vital Signs 05/25/24 09:13 Height 5 ft Weight 127 lb 4 oz BMI 24.8 BP 146/74 H Blood Pressure Location Rt brachial Position Sitting Pulse 70 Pulse Source Pulse Oximeter Pulse Oximetry (%) 94 Oxygen Delivery Method Room Air Intake Visit Reasons: 6 Month follow up Allergies No Known Allergies Allergy (Verified 05/25/24 09:15) Medication List - Last Reconciled 05/25/24 by Mali Oakes MD atorvastatin 10 mg PO DAILY 90 days cholecalciferol (vitamin D3) 50 mcg PO DAILY lisinopril 2.5 mg PO DAILY mirtazapine 7.5 mg PO BEDTIME Tobacco use date assessed: 05/25/24 Fall risk assessment: No Falls in past year Last assessed Fall Risk: 05/25/24 Dental Screening Dental Screen Date: 05/25/24 Did you have a dental visit in the last 12 months?: Yes Did you have a dental problem in the last 6 months where you did not have access to dental care?: No Was dental information given to patient?: Patient has dentist HPI 6 Month follow up HPI Details Chief Complaint The patient presents for a scheduled follow-up to monitor blood pressure, blood sugar levels, and recovery from recent varicose vein surgery. Assessment and Plan 83-year-old female with a history of ess ential hypertension and recent varicose vein surgery, presenting for routine follow-up and management of borderline blood glucose levels. The patient is at increased risk for diabetes, with current blood sugar levels slightly elevated but not yet diagnostic. Hypertension is inadequately controlled on current treatment, as evidenced by elevated readings both in the clinic and at home. The patient reports issues with sleep, experiencing interrupted sleep patterns. There are ongoing postoperative symptoms in the leg following varicose vein surgery, which are expected to improve with time. 1. Essential Hypertension Current antihypertensive therapy with Lisinopril will be adjusted. The patient is advised to increase the dose to 10 mg, as recent blood pressure readings at home were in the range of 140-145 mmHg, indicative of inadequate control. The patient is instructed to continue monitoring blood pressure at home. Adjustments to medication should be considered if hypotensive symptoms occur, and further evaluation will be done in six months. 2. Insomnia The patient reports poor sleep maintenance with current low-dose hypnotics mirtazapine currently at 7.5 mg, and has experienced adverse gastrointestinal symptoms with magnesium supplements. Further adjustments in medication were discussed but not implemented at this time. The patient is advised on potential dosage increases if required. 3. Post-Surgical Status For Varicose Vei ns The patient underwent surgery for varicose veins two weeks prior. Current sym ptoms such as pain are expected to resolve as the healing process continues. No additional interventions are planned currently, but continued follow-up will monitor symptom resolution. 4. Risk Of Diabetes Mellitus Continue to monitor blood sugar levels every six months. The patient is advised to modify diet, particularly to reduce sweet intake, to help manage the risk of developing diabetes. Reassessment scheduled for the next visit to evaluate glucose tolerance status. Problem List - Risk of Diabetes Mellitus - Essential Hypertension - Insomnia - Post-surgical Status for Varicose Vein s Patient Instructions - Maintain a diet low in sweets to manag e blood sugar levels. - Increase Lisinopril dose as instructed and monitor blood pressure at home. - Monitor for any hypotensive symptoms s uch as dizziness or lightheadedness. - Report any persistent postoperative sy mptoms from varicose vein surgery if they do not improve. - Follow sleep hygiene practices and con sult if insomnia persists. - Return for a follow-up appointment in six months for reassessment of conditions and lab work. - Notify if any new symptoms arise or cu rrent conditions worsen. [facility] Medical History Varicose veins of right lower extremity with pain Difficulty sleeping Menopause Dyslipidemia Essential hypertension Surgical History Hx of colonoscopy Hx of esophagogastroduodenoscopy Hx of vein stripping History of back surgery H/O: hysterectomy Family History Father No problems noted. Mother No problems noted. Social History Housing: House Alcohol intake: never Patient Tobacco Use Status: Never used Tobacco e-Cigarette/Vaping Use: Never Used service: No Current occupational status: retired Cognitive needs: No Hearing needs: No Vision needs: Yes Questionnaire PHQ-9 Over the last 2 weeks, how often have you been bothered by any of the following problems? 1. Little interest or pleasure in doing things: not at all 2. Feeling down, depressed, or hopeless: not at all 3. Trouble falling or staying asleep, or sleeping too much: several days 4. Feeling tired or having little energy: not at all 5. Poor appetite or overeating: not at all 6. Feeling bad about yourself - or that you are a failure or have let yourself or your family down: not at all 7. Trouble concentrating on things, such as reading the newspaper or watching television: not at all 8. Moving or speaking so slowly that other people could have noticed. Or the opposite - being so fidgety or restless that you have been moving around a lot more than usual: not at all 9. Thoughts that you would be better off or of hurting yourself in some way: not at all Total score: 1 Depression Screening Interpretation: Negative Depression Screening Done: Yes [id number] - PHQ-9 Billing: Yes Source: Developed by Drs. Omar Rosen, Yamile Dickens, Bayron Umaña and colleagues, with an educational maurilio from [employer]. Thrive Questionnaire Date Thrive assessed: 05/25/24 I am a: Patient What is your living situation today?: I have a steady place to live Within the past 12 months, did the food you bought not last and you didn't have the money to get more?: Never true Within the past 12 months, did you worry whether your food would run out before you got money to buy more?: Never true Do you have trouble paying for medicines?: No Do you have trouble getting transportation to medical appointments?: No Do you have trouble paying your heating and electricity bill?: No Do you have trouble taking care of your child, family member or friend?: I choose not to answer this question Do you have trouble with day-to-day activities such as bathing, preparing meals, shopping, managing finances, etc.?: No Are you currently unemployed and looking for a job?: No Are you interested in more education?: No Please select the resources that you would like help with: None Currently or been in a relationship where the following occur: No concerns reported THRIVE Score: 0 AUDIT C Alcohol Use Questionnaire (AUDIT-C) 1. How often do you have a drink containing alcohol?: Never 3. How often do you have six or more drinks on one occasion?: Never Total Score: 0 Score Reviewed/Action Taken: Yes DARIN-7 AMB Questionnaire DARIN-7 Date DARIN - 7 assessed: 05/25/24 Feeling nervous, anxious, or on edge: 0 = Not at all Not being able to stop or control worryin = Not at all Worrying too much about different things: 0 = Not at all Trouble relaxin = Not at all Being so restless that it is hard to sit still: 0 = Not at all Becoming easily annoyed or irritable: 0 = Not at all Feeling afraid as if something awful might happen: 0 = Not at all Total DARIN-7 score (0-4 normal; 5-9 mild; 10-14 moderate; 15-21 severe): 0 Source: Developed by Drs. Omar Rosen, Yamile Dickens, Bayron Umaña and colleagues, with an educational maurilio from [employer]. DARIN-7 Assessment Billing DARIN-7 Assessment Tool: DARIN-7 Assessment [id number] Review of Systems Const Denies chills and Denies fever(s) ENT Denies epistaxis and Denies nasal discharge Card Denies chest pain Resp Denies chest congestion, Denies cough and Denies hemoptysis GI Denies diarrhea and Denies nausea Skin/Breast Denies rash Neuro Reports no additional complaints Psych Reports no additional complaints Endo Reports no additional complaints Physical exam (Primary Care) Vital Signs: Last Vital Signs Pulse 70 05/25/24 09:13 BP 146/74 H 05/25/24 09:13 Pulse Ox 94 05/25/24 09:13 Oxygen Delivery Method Room Air 05/25/24 09:13 BMI result Body Mass Index 24.8 Tobacco/Smoking Status: Tobacco use Status Tobacco use date assessed 05/25/24 05/25/24 09:16 Patient Tobacco Use Status Never used Tobacco 05/25/24 09:12 e-Cigarette/Vaping Use Never Used 05/25/24 09:12 PHQ-9: PHQ-9 Score PHQ-9: Total score 1 05/25/24 09:16 Depression Screening Interpretation: Negative Thrive Assessment: Date of Thrive Assessment Date Thrive assessed 05/25/24 05/25/24 09:16 Currently or been in a relationship where the following occur: No concerns reported Const General: cooperative, comfortable and no acute distress Orientation/consciousness: patient oriented x3 HENMT Head: Yes normocephalic Eyes General: appearance normal, both eyes and all related structures Neck Neck: Yes supple Resp Effort & Inspection: normal respiratory effort, no cough and no stridor Cardio Rhythm: regular rhythm Heart sounds: S1 normal heart sound present and S2 normal heart sound present Skin General skin exam: turgor normal Neuro General: patient oriented x3, tone normal and moves all extremities Extrem Right lower extremity: no edema Left lower extremity: no edema Coding Level of Care Code Est Pt Level 4 (96452) Complex EM visit Add On G2211 Diagnoses Essential hypertension I10 Lipid disorder E78.9 Peripheral vascular disease I73.9 Impaired fasting blood sugar R73.01 Difficulty sleeping G47.9 Additional Codes DARIN-7 Assessment Billing - DARIN-7 Assessment Tool: DARIN-7 Assessment [id number] ([id number]) PHQ-9 - 87372 - PHQ-9 Billing: Yes ([id number]) Assessment & Plan Assessment & Plan (1) Essential hypertension: Code(s): I10 - Essential (primary) hypertension Category: Medical (2) Lipid disorder: Code(s): E78.9 - Disorder of lipoprotein metabolism, unspecified Category: Medical (3) Peripheral vascular disease: Code(s): I73.9 - Peripheral vascular disease, unspecified Category: Medical (4) Impaired fasting blood sugar: Code(s): R73.01 - Impaired fasting glucose Category: Medical (5) Difficulty sleeping: Code(s): G47.9 - Sleep disorder, unspecified Category: Medical Plan Chief Complaint The patient presents for a scheduled follow-up to monitor blood pressure, blood sugar levels, and recovery from recent varicose vein surgery. Assessment and Plan 83-year-old female with a history of essential hypertension and recent varicose vein surgery, presenting for routine follow-up and management of borderline blood glucose levels. The patient is at increased risk for diabetes, with current blood sugar levels slightly elevated but not yet diagnostic. Hypertension is inadequately controlled on current treatment, as evidenced by elevated readings both in the clinic and at home. The patient reports issues with sleep, experiencing interrupted sleep patterns. There are ongoing po stoperative symptoms in the leg following varicose vein surgery, which are expected to improve with time. 1. Essential Hypertension Current antihypertensive therapy with Lisinopril will be adjusted. The patient is advised to increase the dose to 10 mg, as recent blood pressure readings at home were in the range of 140-145 mmHg, indicative of inadequate control. The patient is instructed to continue monitoring blood pressure at home. Adjustments to medication should be considered if hypotensive symptoms occur, and further evaluation will be done in six months. 2. Insomnia The patient reports poor sleep maintenance with current low-dose hypnotics mirtazapine currently at 7.5 mg, and has experienced adverse gastrointestinal symptoms with magnesium supplements. Further adjustments in medication were discussed but not implemented at this time. The patient is advised on potential dosage increases if required. 3. Post-Surgical Status For Varicose Veins The patient underwent surgery for varicose veins two weeks prior. Current symptoms such as pain are expected to resolve as the healing process continues. No additional interventions are planned currently, but continued follow-up will monitor symptom resolution. 4. Risk Of Diabetes Mellitus Continue to monitor blood sugar levels every six months. The patient is advised to modify diet, particularly to reduce sweet intake, to help manage the risk of developing diabetes. Reassessment scheduled for the next visit to evaluate glucose tolerance status. Problem List - Risk of Diabetes Mellitus - Essential Hypertension - Insomnia - Post-surgical Status for Varicose Veins Patient Instructions - Maintain a diet low in sweets to manage blood sugar levels. - Increase Lisinopril dose as instructed and monitor blood pressure at home. - Monitor for any hypotensive symptoms such as dizziness or lightheadedness. - Report any persistent postoperative symptoms from varicose vein surgery if they do not improve. - Follow sleep hygiene practices and consult if insomnia persists. - Return for a follow-up appointment in six months for reassessment of conditions and lab work. - Notify if any new symptoms arise or current conditions worsen. Orders: Orders Comprehensive [place]. Panel Fast 6 Months E78.9 - Disorder of lipoprotein metabolism, unspecified, G47.9 - Sleep disorder, unspecified, I10 - Essential (primary) hypertension, I73.9 - Peripheral vascular disease, unspecified, R73.01 - Impaired fasting glucose Vitamin D 25-OH (D2 and D3) 6 Months E78.9 - Disorder of lipoprotein metabolism, unspecified, G47.9 - Sleep disorder, unspecified, I10 - Essential (primary) hypertension, I73.9 - Peripheral vascular disease, unspecified, R73.01 - Impaired fasting glucose TSH reflex Free T4 6 Months E78.9 - Disorder of lipoprotein metabolism, unspe cified, G47.9 - Sleep disorder, unspecified, I10 - Essential (primary) hypertension, I73.9 - Peripheral vascular disease, unspecified, R73.01 - Impaired fasting glucose Complete Blood Count Auto Diff 6 Months E78.9 - Disorder of lipoprotein metabolism, unspecified, G47.9 - Sleep disorder, unspecified, I10 - Essential (primary) hypertension, I73.9 - Peripheral vascular disease, unspecified, R73.01 - Impaired fasting glucose Lipid Panel 6 Months E78.9 - Disorder of lipoprotein metabolism, unspecified, G47.9 - Sleep disorder, unspecified, I10 - Essential (primary) hypertension, I73.9 - Peripheral vascular disease, unspecified, R73.01 - Impaired fasting glucose Vitamin B12 6 Months E78.9 - Disorder of lipoprotein metabolism, unspecified, G47.9 - Sleep disorder, unspecified, I10 - Essential (primary) hypertension, I73.9 - Peripheral vascular disease, unspecified, R73.01 - Impaired fasting glucose Hemoglobin A1c 6 Months E78.9 - Disorder of lipoprotein metabolism, unspecified, G47.9 - Sleep disorder, unspecified, I10 - Essential (primary) hypertension, I73.9 - Peripheral vascular disease, unspecified, R73.01 - Impaired fasting glucose Medications: Changed From lisinopril 2.5 mg PO DAILY 90 tabs 2RF I10 - Essential (primary) hypertension To lisinopril 10 mg PO DAILY 90 tabs 2RF I10 - Essential (primary) hypertension Discontinued mirtazapine Discontinued Reason: Doctor's Order 7.5 mg PO BEDTIME 30 tabs 0RF
[2024-05-25 09:13] VITALS: BP 146/74; PULSE 70; O2SAT 94; BMI 24.8
== END 2024-05-25 09:31 | disposition home or self-care (01) ==
PROVIDERS: PCP Internal Medicine; Visit Provider Internal Medicine
DX: I10 Essential (primary) hypertension (principal); E78.9 Disorder of lipoprotein metabolism, unspecified; I73.9 Peripheral vascular disease, unspecified; R73.01 Impaired fasting glucose; G47.9 Sleep disorder, unspecified

== ENCOUNTER → 2024-05-25 09:09 | Outpatient (BNVA) | payer MEDICARE, SELFPAY | PROVIDERS: PCP Internal Medicine; Visit Provider Internal Medicine | DX: I10 Essential (primary) hypertension (principal); E78.9 Disorder of lipoprotein metabolism, unspecified; I73.9 Peripheral vascular disease, unspecified; R73.01 Impaired fasting glucose; G47.9 Sleep disorder, unspecified | CPT/HCPCS: 96127; 99212 ==

== ENCOUNTER 2024-08-24 11:30 | Outpatient (AMB) | payer MEDICARE, SELFPAY ==
--- NOTE | 2024-08-24 11:45 | A.OFFPC_ITS ---
Vital Signs 08/24/24 11:48 Height 5 ft Weight 128 lb 6 oz BMI 25.1 BP 138/64 Blood Pressure Location Rt brachial Position Sitting Pulse 72 Pulse Source Pulse Oximeter Pulse Oximetry (%) 96 Oxygen Delivery Method Room Air Intake Visit Reasons: Growth in cheek Allergies No Known Allergies Allergy (Verified 08/24/24 11:49) Medication List - Last Reconciled 08/24/24 by Mali Oakes MD atorvastatin 10 mg PO DAILY 90 days cholecalciferol (vitamin D3) 50 mcg PO DAILY lisinopril 10 mg PO DAILY Tobacco use date assessed: 08/24/24 Fall risk assessment: No Falls in past year Last assessed Fall Risk: 08/24/24 Dental Screening Dental Screen Date: 08/24/24 Did you have a dental visit in the last 12 months?: No Did you have a dental problem in the last 6 months where you did not have access to dental care?: No Was dental information given to patient?: Patient has dentist HPI Growth in cheek HPI Details History - The patient is an 84-year-old female p resenting with a facial lesion suspected to be skin cancer. - She reports a two-week history of a ch anging lesion on the left side of her face, initially small, now enlarging. - There is a documented family history o f skin cancer, including her brother with multiple removals. - The patient has a fair complexion, and she recalls a previous dermatological evaluation with a past removal of a cranial bone growth. - Concern was initiated by her daughter, coinciding with the familial predisposition to cutaneous malignancies. Problem List - Facial lesion (suspected skin cancer) - Family history of skin cancer Patient Instructions - Await for Dermatology appointment - Consider contacting the dermatology [facility] sooner if the lesion changes rapidly or becomes symptomatic. Review of Systems - General: No fever no chills - Neurological: No headaches no dizziness - Ear nose throat: No sore throat no hearing difficulty no ear pain - Cardiovascular: No syncope, no chest pain, no palpitations - Gastrointestinal: No nausea vomiting or diarrhea - Endocrine: No polyuria polydipsia no heat intolerance - Genitourinary: No dysuria , no blood in urine Physical Exam General: No acute distress HEENT: No acute findings Neck: Supple Respiratory system: Able to talk in full sentences, no audible wheeze cardiovascular: S1-S2 regular in rate and rhythm Gastrointestinal: No pain Extremities: No new findings AUT[employer] DISM[employer]ER: Alert awake oriented x3 motor sensory intact Skin: Changing skin lesion on the left side of the face gnosticist area deep color, irregular about size of nickel and few other moles that need to be checked [facility] Medical History Varicose veins of right lower extremity with pain Difficulty sleeping Menopause Dyslipidemia Essential hypertension Surgical History Hx of colonoscopy Hx of esophagogastroduodenoscopy Hx of vein stripping History of back surgery H/O: hysterectomy Family History Father No problems noted. Mother No problems noted. Social History Housing: House Alcohol intake: never Patient Tobacco Use Status: Never used Tobacco e-Cigarette/Vaping Use: Never Used service: No Current occupational status: retired Cognitive needs: No Hearing needs: No Vision needs: Yes Questionnaire Thrive Questionnaire Date Thrive assessed: 08/24/24 I am a: Patient What is your living situation today?: I have a steady place to live Within the past 12 months, did the food you bought not last and you didn't have the money to get more?: Never true Within the past 12 months, did you worry whether your food would run out before you got money to buy more?: Never true Do you have trouble paying for medicines?: No Do you have trouble getting transportation to medical appointments?: No Do you have trouble paying your heating and electricity bill?: No Do you have trouble taking care of your child, family member or friend?: I choose not to answer this question Do you have trouble with day-to-day activities such as bathing, preparing meals, shopping, managing finances, etc.?: No Are you currently unemployed and looking for a job?: No Are you interested in more education?: No Please select the resources that you would like help with: None Currently or been in a relationship where the following occur: No concerns reported THRIVE Score: 0 AUDIT C Alcohol Use Questionnaire (AUDIT-C) 1. How often do you have a drink containing alcohol?: Never 3. How often do you have six or more drinks on one occasion?: Never Total Score: 0 Score Reviewed/Action Taken: Yes DARIN-7 AMB Questionnaire DARIN-7 Date DARIN - 7 assessed: 08/24/24 Feeling nervous, anxious, or on edge: 0 = Not at all Not being able to stop or control worryin = Not at all Worrying too much about different things: 0 = Not at all Trouble relaxin = Not at all Being so restless that it is hard to sit still: 0 = Not at all Becoming easily annoyed or irritable: 0 = Not at all Feeling afraid as if something awful might happen: 0 = Not at all Total DARIN-7 score (0-4 normal; 5-9 mild; 10-14 moderate; 15-21 severe): 0 Source: Developed by Drs. Omar Rosen, Yamile Dickens, Bayron Umaña and colleagues, with an educational maurilio from [employer]. DARIN-7 Assessment Billing DARIN-7 Assessment Tool: DARIN-7 Assessment 24636 Physical exam (Primary Care) Vital Signs: Last Vital Signs Pulse 72 08/24/24 11:48 BP 138/64 08/24/24 11:48 Pulse Ox 96 08/24/24 11:48 Oxygen Delivery Method Room Air 08/24/24 11:48 BMI result Body Mass Index 25.1 Tobacco/Smoking Status: Tobacco use Status Tobacco use date assessed 08/24/24 08/24/24 11:50 Patient Tobacco Use Status Never used Tobacco 08/24/24 11:47 e-Cigarette/Vaping Use Never Used 08/24/24 11:47 Thrive Assessment: Date of Thrive Assessment Date Thrive assessed 08/24/24 08/24/24 11:50 Currently or been in a relationship where the following occur: No concerns reported Coding Level of Care Code Est Pt Level 3 (78093) Diagnoses Skin lesion L98.9 Family history of skin cancer Z80.8 Additional Codes DARIN-7 Assessment Billing - DARIN-7 Assessment Tool: DARIN-7 Assessment 75066 ([id number]) Assessment & Plan Assessment & Plan (1) Skin lesion: Code(s): L98.9 - Disorder of the skin and subcutaneous tissue, unspecified Category: Medical (2) Family history of skin cancer: Code(s): Z80.8 - Family history of malignant neoplasm of other organs or systems Category: Medical Plan History - The patient is an 84-year-old female presenting with a facial lesion suspected to be skin cancer. - She reports a two-week history of a changing lesion on the left side of her face, initially small, now enlarging. - There is a documented family history of skin cancer, including her brother with multiple removals. - The patient has a fair complexion, and she recalls a previous dermatological evaluation with a past removal of a cranial bone growth. - Concern was initiated by her daughter, coinciding with the familial predisposition to cutaneous malignancies. Problem List - Facial lesion (suspected skin cancer) - Family history of skin cancer Patient Instructions - Await for Dermatology appointment - Consider contacting the dermatology office sooner if the lesion changes rapidly or becomes symptomatic. Orders: Referrals Dermatology Referral L98.9 - Disorder of the skin and subcutaneous tissue, unspecified
[2024-08-24 11:48] VITALS: BP 138/64; PULSE 72; O2SAT 96; BMI 25.1
== END 2024-08-24 12:24 | disposition home or self-care (01) ==
PROVIDERS: PCP Internal Medicine; Visit Provider Internal Medicine
DX: L98.9 Disorder of the skin and subcutaneous tissue, unspecified (principal); Z80.8 Family history of malignant neoplasm of other organs or systems

== ENCOUNTER → 2024-08-24 11:30 | Outpatient (BNVA) | payer MEDICARE, SELFPAY | PROVIDERS: PCP Internal Medicine; Visit Provider Internal Medicine | DX: L98.9 Disorder of the skin and subcutaneous tissue, unspecified (principal); Z80.8 Family history of malignant neoplasm of other organs or systems | CPT/HCPCS: 96127; 99212 ==

== ENCOUNTER 2024-12-06 06:05 | Outpatient (REF) | payer MEDICARE, SELFPAY ==
[2024-12-06 06:23] LABS: MANUAL DIFF FLAG NO
[2024-12-06 07:11] LABS: Estimated Average Glucose 123 mg/dL; Hemoglobin A1C 141.3653 umol/L; Hemoglobin A1c % 5.9 % (<6.0); Total Hemoglobin (HGBA1C) 3464.4418 umol/L
[2024-12-06 07:14] LABS: Basophils Percent Auto 0.8 % (0-2); Eosinophils Absolute Auto 0.2 X10*3/uL (0.0-0.4); Eosinophils Percent Auto 3.9 % (0-4); Hematocrit 41.1 % (37.0-47.0); Hemoglobin 13.4 g/dl (12.0-16.0); Imm Gran Abs Auto 0.01 X10*3/uL (0.00-0.03); Imm Gran Pct Auto 0.2 % (0.0-0.4); Lymphocytes Absolute Auto 2.3 X10*3/uL (1.2-4.9); Lymphocytes Percent Auto 44.3 % (20-40); Mean Corpuscular HGB Conc 32.6 g/dl (31.0-35.0); Mean Corpuscular Volume 91.9 fL (80.0-98.0); Mean Platelet Volume 11.4 fL (9.4-12.3); Monocytes Absolute Auto 0.6 X10*3/uL (0.1-1.2); Monocytes Percent Auto 12.5 % (2-11); Neutrophils Percent Auto 38.3 % (45-73); Platelet Count 210 X10*3/uL (160-400); Red Blood Count 4.47 X10*6/uL (4.20-5.50); Red Cell Distribution Width 13.1 % (11.0-16.0); White Blood Count 5.1 X10*3/uL (4.8-10.8)
[2024-12-06 07:36] LABS: Alanine Aminotransferase 35 U/L (0-31); Albumin Level 4.5 g/dL (3.5-5.0); Alkaline Phosphatase 61 U/L (39-117); Anion Gap 12 (12-20); Aspartate Amino Transferase 34 U/L (5-31); Bilirubin Total 0.6 mg/dL (0.0-1.0); Blood Urea Nitrogen 17 mg/dL (9-16); Calcium 10.1 mg/dL (8.4-10.2); Carbon Dioxide 30 mmol/L (22-29); Chloride 108 mmol/L (96-108); Cholesterol 218 mg/dL (<200); Estimated Glomerular Filt Rate > 60; Glucose Fasting 102 mg/dL (60-99); HDL Cholesterol 54 mg/dL (>40); LDL Cholesterol Calculated 146 mg/dL (<100); Potassium 4.7 mmol/L (3.3-5.1); Sodium 145 mmol/L (135-145); Total Protein 7.4 g/dL (6.5-8.0); Triglycerides 91 mg/dL (<150)
[2024-12-06 07:53] LABS: TSH reflex Free T4 2.62 uIU/mL (0.32-4.0)
[2024-12-06 07:59] LABS: Vitamin B12 719 pg/mL (200-900)
[2024-12-10 14:39] LABS: Vitamin D 25-OH, D2 <4 ng/mL; Vitamin D 25-OH, D3 56 ng/mL; Vitamin D 25-OH, Total 56 ng/mL (30-100)
== END 2024-12-06 06:06 | disposition home or self-care (01) ==
LOC: HO.LAB 06:05
PROVIDERS: PCP Internal Medicine; Visit Provider Internal Medicine
DX: E78.9 Disorder of lipoprotein metabolism, unspecified (principal); I73.9 Peripheral vascular disease, unspecified; R73.01 Impaired fasting glucose; I10 Essential (primary) hypertension; G47.9 Sleep disorder, unspecified
CPT/HCPCS: 36415; 80053; 80061; 82306; 82607; 83036; 84443; 85025

== ENCOUNTER 2024-12-15 08:44 | Outpatient (AMB) | payer MEDICARE, SELFPAY ==
--- NOTE | 2024-12-15 08:47 | MHC.PC.OV ---
Vital Signs 12/15/24 08:48 Height 5 ft Weight 129 lb BMI 25.2 BP 132/62 Blood Pressure Location Rt brachial Position Sitting Respiration 16 Pulse 77 Pulse Source Pulse Oximeter Temp 98.2 F Temp Source Oral Pulse Oximetry (%) 96 Oxygen Delivery Method Room Air Intake Visit Reasons: PE/ 6M FOLLOW UP Allergies No Known Allergies Allergy (Verified 12/15/24 08:48) Medication List - Last Reconciled 12/15/24 by Mali Oakes MD atorvastatin 10 mg PO DAILY 90 days cholecalciferol (vitamin D3) 50 mcg PO DAILY lisinopril 10 mg PO DAILY Tobacco use date assessed: 12/15/24 Fall risk assessment: No Falls in past year Last assessed Fall Risk: 12/15/24 Dental Screening Dental Screen Date: 12/15/24 Did you have a dental visit in the last 12 months?: Yes Did you have a dental problem in the last 6 months where you did not have access to dental care?: No Was dental information given to patient?: Patient has dentist HPI PE/ 6M FOLLOW UP HPI Details Physical exam appointment - The patient is an 84-year-old female presenting with insomnia. - Insomnia: The patient reports difficulty sleeping, only achieving four to five hours of sleep per night and waking up at 4 AM, unable to return to sleep. - Prediabetes: The patient has a history of elevated fasting blood sugar levels but is not diagnosed with diabetes. - Hyperlipidemia: The patient reports an increase in cholesterol levels, possibly due to dietary habits, and is currently on cholesterol medication. - Lifestyle: The patient lives alone, maintains independence, and engages in gardening and exercise at a senior center twice a week. - Family: The patient has a daughter living in [place] and two sons living farther away. - Preventative care: The patient has not been undergoing mammograms or colon screenings recently and has been referred to a contingents supervisor for a skin check. Health Maintenance - Dermatology referral for skin check due to sun exposure concerns. - Exercise: Engages in physical activity twice a week at a senior center. - no more colonoscopy, mammogram as per patient [place] of Care The patient's [place] of care includes her daughter who lives in [place] and provides assistance when needed. Diagnostic results - Labs: CBC normal, no anemia, electrolytes normal, kidney functions normal, fasting blood sugar slightly elevated indicating prediabetes, liver enzymes stable. Patient Instructions - Take the prescribed sleeping medication as needed, not more than one or two times a week. Zolpidem 5 mg - Continue taking cholesterol medication as prescribed and request a refill if needed. - Attend the dermatology appointment for a skin check. - Schedule a follow-up appointment in three months to assess the effectiveness of the new medication. Review of Systems - General: No fever no chills - Neurological: No headaches no dizziness - Ear nose throat: No sore throat no hearing difficulty no ear pain - Cardiovascular: No syncope, no chest pain, no palpitations - Gastrointestinal: No nausea vomiting or diarrhea - Endocrine: No polyuria polydipsia no heat intolerance - Genitourinary: No dysuria - Skin: No new complaints Physical Exam General: Cooperative, healthy appearing, comfortable, no acute distress Orientation: Patient oriented x3 Head: Normal to inspection Ears: Within normal limit visually Nose: Normal external nose present Face and sinus: Normal facial exam Eyes: Appearance normal, extraocular movement intact pupils reactive Neck: Normal visual inspection and supple Respiratory: Normal respiratory effort and able to speak in complete sentences. Clear to auscultation, no stridor Cardiovascular: S1 and S2 RRR Breast exam benign GI: Normal to inspection. Soft to palpation and nontender Skin: Turgor normal, no acute findings. Referred to contingents supervisor for further evaluation. Neuro: Patient oriented x3, motor sensory intact, balance intact, tandem pass Extremities: Normal to inspection, good balance noted during examination. [facility] Medical History Varicose veins of right lower extremity with pain Difficulty sleeping Menopause Dyslipidemia Essential hypertension Surgical History Hx of colonoscopy Hx of esophagogastroduodenoscopy Hx of vein stripping History of back surgery H/O: hysterectomy Family History Father No problems noted. Mother No problems noted. Social History Housing: House Alcohol intake: never Patient Tobacco Use Status: Never used Tobacco e-Cigarette/Vaping Use: Never Used service: No Current occupational status: retired Cognitive needs: No Hearing needs: No Vision needs: Yes Questionnaire Thrive Questionnaire Date Thrive assessed: 12/15/24 DARIN-7 AMB Questionnaire DARIN-7 Date DARIN - 7 assessed: 08/24/24 Source: Developed by Drs. Omar Rosen, Yamile Dickens, Bayron Umaña and colleagues, with an educational maurilio from [employer]. Physical exam (Primary Care) Vital Signs: Last Vital Signs Temp 98.2 F 12/15/24 08:48 Pulse 77 12/15/24 08:48 Resp 16 12/15/24 08:48 BP 132/62 12/15/24 08:48 Pulse Ox 96 12/15/24 08:48 Oxygen Delivery Method Room Air 12/15/24 08:48 BMI result Body Mass Index 25.2 Tobacco/Smoking Status: Tobacco use Status Tobacco use date assessed 12/15/24 12/15/24 08:51 Patient Tobacco Use Status Never used Tobacco 12/15/24 08:51 e-Cigarette/Vaping Use Never Used 12/15/24 08:51 Thrive Assessment: Date of Thrive Assessment Date Thrive assessed 12/15/24 12/15/24 08:51 Coding Level of Care Code Est Pt Level 3 (43001) Est Pt Prev Care >65y(19075) Diagnoses Encounter for general adult medical examination with abnormal findings Z00.01 Difficulty sleeping G47.9 Impaired fasting blood sugar R73.01 Lipid disorder E78.9 Essential hypertension I10 Skin cancer screening Z12.83 Anxiety, generalized F41.1 Assessment & Plan Assessment & Plan (1) Encounter for general adult medical examination with abnormal findings: Code(s): Z00.01 - Encounter for general adult medical examination with abnormal findings Category: Medical (2) Difficulty sleeping: Code(s): G47.9 - Sleep disorder, unspecified Category: Medical (3) Impaired fasting blood sugar: Code(s): R73.01 - Impaired fasting glucose Category: Medical (4) Lipid disorder: Code(s): E78.9 - Disorder of lipoprotein metabolism, unspecified Category: Medical (5) Essential hypertension: Code(s): I10 - Essential (primary) hypertension Category: Medical (6) Skin cancer screening: Code(s): Z12.83 - Encounter for screening for malignant neoplasm of skin Category: Medical (7) Anxiety, generalized: Code(s): F41.1 - Generalized anxiety disorder Category: Medical Plan Physical exam appointment - The patient is an 84-year-old female presenting with insomnia. - Insomnia: The patient reports difficulty sleeping, only achieving four to five hours of sleep per night and waking up at 4 AM, unable to return to sleep. - Prediabetes: The patient has a history of elevated fasting blood sugar levels but is not diagnosed with diabetes. - Hyperlipidemia: The patient reports an increase in cholesterol levels, possibly due to dietary habits, and is currently on cholesterol medication. - Lifestyle: The patient lives alone, maintains independence, and engages in gardening and exercise at a senior center twice a week. - Family: The patient has a daughter living in [place] and two sons living farther away. - Preventative care: The patient has not been undergoing mammograms or colon screenings recently and has been referred to a contingents supervisor for a skin check. Health Maintenance - Dermatology referral for skin check due to sun exposure concerns. - Exercise: Engages in physical activity twice a week at a senior center. - no more colonoscopy, mammogram as per patient [place] of Care The patient's [place] of care includes her daughter who lives in [place] and provides assistance when needed. Diagnostic results - Labs: CBC normal, no anemia, electrolytes normal, kidney functions normal, fasting blood sugar slightly elevated indicating prediabetes, liver enzymes stable. Patient Instructions - Take the prescribed sleeping medication as needed, not more than one or two times a week. Zolpidem 5 mg - Continue taking cholesterol medication as prescribed and request a refill if needed. - Attend the dermatology appointment for a skin check. - Schedule a follow-up appointment in three months to assess the effectiveness of the new medication. Orders: Referrals Dermatology Referral Z12.83 - Encounter for screening for malignant neoplasm of skin Medications: New zolpidem (Ambien) 5 mg PO BEDTIME PRN 30 tabs 0RF sleep Changed From atorvastatin 10 mg PO DAILY 90 days 90 tabs 2RF E78.5 - Hyperlipidemia, unspecified To atorvastatin 20 mg PO DAILY 90 tabs 0RF 90 days E78.5 - Hyperlipidemia, unspecified Refilled lisinopril 10 mg PO DAILY 90 tabs 2RF I10 - Essential (primary) hypertension
[2024-12-15 08:48] VITALS: BP 132/62; PULSE 77; RESP 16; TEMP 36.8; O2SAT 96; BMI 25.2
--- OUTSIDE RECORDS SUMMARY | 2024-12-15 09:14 | XMS_ITS | Patient Health Record ---
Author Organization [facility] Address [address] [place] [address] Care Team Providers Care Bottle Gauger Name Role Phone Omar Allison [phone] Reason For Referral No Information Plan Of Treatment No Information
== END 2024-12-15 09:17 | disposition home or self-care (01) ==
LOC: HO.HMCC 08:45
PROVIDERS: PCP Internal Medicine; Visit Provider Internal Medicine
DX: Z00.01 Encounter for general adult medical examination with abnormal findings (principal); G47.9 Sleep disorder, unspecified; R73.01 Impaired fasting glucose; E78.9 Disorder of lipoprotein metabolism, unspecified; I10 Essential (primary) hypertension; Z12.83 Encounter for screening for malignant neoplasm of skin; F41.1 Generalized anxiety disorder

== ENCOUNTER → 2024-12-15 08:44 | Outpatient (BNVA) | payer MEDICARE, SELFPAY | PROVIDERS: PCP Internal Medicine; Visit Provider Internal Medicine | DX: Z00.01 Encounter for general adult medical examination with abnormal findings (principal); G47.00 Insomnia, unspecified; R73.03 Prediabetes; E78.5 Hyperlipidemia, unspecified; R73.01 Impaired fasting glucose; I10 Essential (primary) hypertension; F41.1 Generalized anxiety disorder | CPT/HCPCS: 99212; 99397 ==

== ENCOUNTER 2025-03-10 06:20 | Outpatient (REF) | payer MEDICARE, SELFPAY ==
--- OUTSIDE RECORDS SUMMARY | 2025-03-10 06:23 | XMS_ITS | Patient Health Record ---
Author Organization [facility] Address [address] [place] [address] Care Team Providers Care Chain Link Fence Installer Name Role Phone Omar Allison [phone] Reason For Referral No Information Plan Of Treatment No Information
[2025-03-10 06:32] LABS: MANUAL DIFF FLAG NO
[2025-03-10 07:42] LABS: Hematocrit 38.4 % (37.0-47.0); Hemoglobin 12.6 g/dl (12.0-16.0); Imm Gran Abs Auto 0.01 X10*3/uL (0.00-0.03); Imm Gran Pct Auto 0.2 % (0.0-0.4); Lymphocytes Absolute Auto 2.6 X10*3/uL (1.2-4.9); Mean Corpuscular HGB Conc 32.8 g/dl (31.0-35.0); Mean Corpuscular Hemoglobin 29.4 pg (27.0-33.0); Mean Corpuscular Volume 89.5 fL (80.0-98.0); NRBC Abs Auto 0.000 X10*3/uL (0.0-0.012); NRBC Pct Auto 0.0 /100WBC (0.0-0.2); Platelet Count 193 X10*3/uL (160-400); Red Blood Count 4.29 X10*6/uL (4.20-5.50); White Blood Count 5.4 X10*3/uL (4.8-10.8)
[2025-03-10 08:52] LABS: Alanine Aminotransferase 25 U/L (0-31); Albumin Level 4.4 g/dL (3.5-5.0); Alkaline Phosphatase 64 U/L (39-117); Anion Gap 7 (12-20); Aspartate Amino Transferase 30 U/L (5-31); Blood Urea Nitrogen 13 mg/dL (9-16); Calcium 9.5 mg/dL (8.4-10.2); Carbon Dioxide 29 mmol/L (22-29); Chloride 111 mmol/L (96-108); Cholesterol 180 mg/dL (<200); Estimated Glomerular Filt Rate > 60; HDL Cholesterol 50 mg/dL (>40); Potassium 4.2 mmol/L (3.3-5.1); Sodium 143 mmol/L (135-145); Total Protein 7.0 g/dL (6.5-8.0); Triglycerides 83 mg/dL (<150)
== END 2025-03-10 06:21 | disposition home or self-care (01) ==
LOC: HO.LAB 06:20
PROVIDERS: PCP Internal Medicine; Visit Provider Internal Medicine
DX: I10 Essential (primary) hypertension (principal); R73.01 Impaired fasting glucose; E78.9 Disorder of lipoprotein metabolism, unspecified
CPT/HCPCS: 36415; 80053; 80061; 85025

== ENCOUNTER 2025-03-15 09:01 | Outpatient (AMB) | payer MEDICARE, SELFPAY ==
[2025-03-15 09:08] VITALS: BP 132/62; PULSE 71; O2SAT 97; BMI 25.0
--- NOTE | 2025-03-15 09:08 | MHC.PC.OV ---
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 Mechanic Required: No Accompanied by: Self / Same As Patient Allergies No Known Allergies Allergy (Verified 03/15/25 09:09) Medication List - Last Reconciled 03/15/25 by Mali Oakes MD atorvastatin 20 mg PO DAILY 90 days cholecalciferol (vitamin D3) 50 mcg PO DAILY lisinopril 10 mg PO DAILY zolpidem (Ambien) 5 mg PO BEDTIME PRN Tobacco use date assessed: 12/15/24 Fall risk assessment: No Falls in past year Last assessed Fall Risk: 03/15/25 Dental Screening Dental Screen Date: 12/15/24 HPI 3 month follow HPI Details History of Present Illness The patient is an 84-year-old female presenting with musculoskeletal pain and sleep disturbances. Musculoskeletal Pain: - The patient reports experiencing pain in her legs and back. - Pain in the legs and back worsened following a procedure on her veins. - Describes legs as feeling tight, especially in the morning upon waking. - Symptoms include tightness and discomfort during prolonged periods of walking and after waking up. - Reports improvement in leg symptoms with movement and walking throughout the day. Sleep Disturbance: - The patient reports persistent sleep disturbances. - While taking a sleeping pill, she falls asleep [Ambien] easily but wakes up around 4:30 to 5:00 AM. - Occasionally has days of satisfactory sleep followed by nights with less restful sleep. - She reports not feeling overtired during the day despite disrupted sleep patterns. Medical History: - Hypertension, managed with lisinopril. - Hyperlipidemia, managed with atorvastatin. - Sleep disturbances, occasionally requiring zolpidem. Surgical History: - Vein procedure (specifics unknown). Medications: - Atorvastatin 20 mg for hyperlipidemia. - Lisinopril 10 mg for hypertension. - Zolpidem 10 mg as needed for sleep disturbances. Social History: - The patient reports maintaining an active lifestyle, including walking. - She experiences occasional long periods of rest during the day. Diagnostic Results: - Labs: - Blood glucose level: 97 mg/dL. - Liver enzymes: within normal limits. - Kidney function: stable and normal. - LDL cholesterol: 114 mg/dL. - CBC: normal, no anemia. - Tests: No additional tests mentioned. Problem List - Musculoskeletal pain - Sleep disturbance - Hyperlipidemia - Hypertension Patient Instructions - Take Tylenol before bedtime as needed to alleviate leg tightness in the morning. - Continue current medications as prescribed. - Consider taking Vitamin D supplements, as discussed. - [place] sleeping pills for nights when necessary. Thirty tablets of Ambien 10 mg sent Follow-up six-month Review of Systems - General: No fever no chills - Neurological: No headaches no dizziness - Ear nose throat: No sore throat no hearing difficulty no ear pain - Cardiovascular: No syncope, no chest pain, no palpitations - Gastrointestinal: No nausea vomiting or diarrhea - Endocrine: No polyuria polydipsia no heat intolerance - Genitourinary: No dysuria , no blood in urine Physical Exam General: No acute distress HEENT: No acute findings Neck: Supple Respiratory system: Able to talk in full sentences, no audible wheeze Cardiovascular: S1-S2 regular in rate and rhythm Gastrointestinal: No pain Extremities: Pain in legs, tightness in the morning 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 [facility] Medical History Varicose veins of right lower extremity with pain Difficulty sleeping Menopause Dyslipidemia Essential hypertension Surgical History Hx of colonoscopy Hx of esophagogastroduodenoscopy Hx of vein stripping History of back surgery H/O: hysterectomy Family History Father No problems noted. Mother No problems noted. Social History Housing: House Alcohol intake: never Patient Tobacco Use Status: Never used Tobacco e-Cigarette/Vaping Use: Never Used service: No Current occupational status: retired Cognitive needs: No Hearing needs: No Vision needs: Yes Questionnaire PHQ-9 Over the last 2 weeks, how often have you been bothered by any of the following problems? 1. Little interest or pleasure in doing things: not at all 2. Feeling down, depressed, or hopeless: not at all 3. Trouble falling or staying asleep, or sleeping too much: several days 4. Feeling tired or having little energy: not at all 5. Poor appetite or overeating: not at all 6. Feeling bad about yourself - or that you are a failure or have let yourself or your family down: not at all 7. Trouble concentrating on things, such as reading the newspaper or watching television: not at all 8. Moving or speaking so slowly that other people could have noticed. Or the opposite - being so fidgety or restless that you have been moving around a lot more than usual: not at all 9. Thoughts that you would be better off or of hurting yourself in some way: not at all Total score: 1 Depression Screening Interpretation: Negative Depression Screening Done: Yes 37179 - PHQ-9 Billing: Yes Source: Developed by Drs. Omar Rosen, Yamile Dickens, Bayron Umaña and colleagues, with an educational maurilio from [employer]. Thrive Questionnaire Date Thrive assessed: 12/15/24 I am a: Patient What is your living situation today?: I have a steady place to live Within the past 12 months, did the food you bought not last and you didn't have the money to get more?: Never true Within the past 12 months, did you worry whether your food would run out before you got money to buy more?: Never true Do you have trouble paying for medicines?: No Do you have trouble getting transportation to medical appointments?: No Do you have trouble paying your heating and electricity bill?: No Do you have trouble taking care of your child, family member or friend?: I choose not to answer this question Do you have trouble with day-to-day activities such as bathing, preparing meals, shopping, managing finances, etc.?: No Are you currently unemployed and looking for a job?: No Are you interested in more education?: No Please select the resources that you would like help with: None Currently or been in a relationship where the following occur: No concerns reported THRIVE Score: 0 AUDIT C Alcohol Use Questionnaire (AUDIT-C) 1. How often do you have a drink containing alcohol?: Never 3. How often do you have six or more drinks on one occasion?: Never Total Score: 0 DARIN-7 AMB Questionnaire DARIN-7 Date DARIN - 7 assessed: 08/24/24 Feeling nervous, anxious, or on edge: 0 = Not at all Not being able to stop or control worryin = Not at all Worrying too much about different things: 0 = Not at all Trouble relaxin = Not at all Being so restless that it is hard to sit still: 0 = Not at all Becoming easily annoyed or irritable: 0 = Not at all Feeling afraid as if something awful might happen: 0 = Not at all Total DARIN-7 score (0-4 normal; 5-9 mild; 10-14 moderate; 15-21 severe): 0 Source: Developed by Drs. Omar Rosen, Yamile Dickens, Bayron Umaña and colleagues, with an educational maurilio from [employer]. DARIN-7 Assessment Billing DARIN-7 Assessment Tool: DARIN-7 Assessment 89887 Physical exam (Primary Care) Vital Signs: Last Vital Signs Pulse 71 03/15/25 09:08 BP 132/62 03/15/25 09:08 Pulse Ox 97 03/15/25 09:08 BMI result Body Mass Index 25.0 Tobacco/Smoking Status: Tobacco use Status Tobacco use date assessed 12/15/24 03/15/25 09:08 Patient Tobacco Use Status Never used Tobacco 03/15/25 09:08 e-Cigarette/Vaping Use Never Used 03/15/25 09:08 PHQ-9: PHQ-9 Score PHQ-9: Total score 1 03/15/25 09:46 Depression Screening Interpretation: Negative Thrive Assessment: Date of Thrive Assessment Date Thrive assessed 12/15/24 03/15/25 09:08 Currently or been in a relationship where the following occur: No concerns reported Coding Level of Care Code Est Pt Level 4 (72424) Complex EM visit Add On G2211 Diagnoses Difficulty sleeping G47.9 Impaired fasting blood sugar R73.01 Lipid disorder E78.9 Essential hypertension I10 Anxiety, generalized F41.1 Arthritis, multiple joint involvement M12.9 Additional Codes PHQ-9 - 20088 - PHQ-9 Billing: Yes ([id number]) DARIN-7 Assessment Billing - DARIN-7 Assessment Tool: DARIN-7 Assessment 28819 ([id number]) Assessment & Plan Assessment & Plan (1) Difficulty sleeping: Code(s): G47.9 - Sleep disorder, unspecified Category: Medical (2) Impaired fasting blood sugar: Code(s): R73.01 - Impaired fasting glucose Category: Medical (3) Lipid disorder: Code(s): E78.9 - Disorder of lipoprotein metabolism, unspecified Category: Medical (4) Essential hypertension: Code(s): I10 - Essential (primary) hypertension Category: Medical (5) Anxiety, generalized: Code(s): F41.1 - Generalized anxiety disorder Category: Medical (6) Arthritis, multiple joint involvement: Code(s): M12.9 - Arthropathy, unspecified Category: Medical Plan History of Present Illness The patient is an 84-year-old female presenting with musculoskeletal pain and sleep disturbances. Musculoskeletal Pain: - The patient reports experiencing pain in her legs and back. - Pain in the legs and back worsened following a procedure on her veins. - Describes legs as feeling tight, especially in the morning upon waking. - Symptoms include tightness and discomfort during prolonged periods of walking and after waking up. - Reports improvement in leg symptoms with movement and walking throughout the day. Sleep Disturbance: - The patient reports persistent sleep disturbances. - While taking a sleeping pill, she falls asleep [Ambien] easily but wakes up around 4:30 to 5:00 AM. - Occasionally has days of satisfactory sleep followed by nights with less restful sleep. - She reports not feeling overtired during the day despite disrupted sleep patterns. Medical History: - Hypertension, managed with lisinopril. - Hyperlipidemia, managed with atorvastatin. - Sleep disturbances, occasionally requiring zolpidem. Surgical History: - Vein procedure (specifics unknown). Medications: - Atorvastatin 20 mg for hyperlipidemia. - Lisinopril 10 mg for hypertension. - Zolpidem 10 mg as needed for sleep disturbances. Social History: - The patient reports maintaining an active lifestyle, including walking. - She experiences occasional long periods of rest during the day. Diagnostic Results: - Labs: - Blood glucose level: 97 mg/dL. - Liver enzymes: within normal limits. - Kidney function: stable and normal. - LDL cholesterol: 114 mg/dL. - CBC: normal, no anemia. - Tests: No additional tests mentioned. Problem List - Musculoskeletal pain - Sleep disturbance - Hyperlipidemia - Hypertension - impaired fasting sugar stable Patient Instructions - Take Tylenol before bedtime as needed to alleviate leg tightness in the morning. - Continue current medications as prescribed. - Consider taking Vitamin D supplements, as discussed. - [place] sleeping pills for nights when necessary. Thirty tablets of Ambien 10 mg sent Follow-up six-month Orders: Orders Comprehensive [place]. Panel Fast 5 Months E78.9 - Disorder of lipoprotein metabolism, unspecified, F41.1 - Generalized anxiety disorder, I10 - Essential (primary) hypertension, R73.01 - Impaired fasting glucose Vitamin D 25-OH (D2 and D3) 5 Months E78.9 - Disorder of lipoprotein metabolism, unspecified, F41.1 - Generalized anxiety disorder, I10 - Essential (primary) hypertension, R73.01 - Impaired fasting glucose Hemoglobin A1c 5 Months E78.9 - Disorder of lipoprotein metabolism, unspecified, F41.1 - Generalized anxiety disorder, I10 - Essential (primary) hypertension, R73.01 - Impaired fasting glucose Complete Blood Count Auto Diff 5 Months E78.9 - Disorder of lipoprotein metabolism, unspecified, F41.1 - Generalized anxiety disorder, I10 - Essential (primary) hypertension, R73.01 - Impaired fasting glucose Lipid Panel 5 Months E78.9 - Disorder of lipoprotein metabolism, unspecified, F41.1 - Generalized anxiety disorder, I10 - Essential (primary) hypertension, R73.01 - Impaired fasting glucose Medications: New cholecalciferol (vitamin D3) 50 mcg PO DAILY 90 caps 0RF Changed From zolpidem (Ambien) 5 mg PO BEDTIME PRN 30 tabs 0RF sleep To zolpidem 10 mg PO BEDTIME PRN 30 tabs 0RF sleep Refilled atorvastatin 20 mg PO DAILY 90 tabs 1RF 90 days E78.5 - Hyperlipidemia, unspecified
--- OUTSIDE RECORDS SUMMARY | 2025-03-15 10:23 | XMS_ITS | Patient Health Record ---
Author Organization [facility] Address [address] [place] [address] Care Team Providers Care Customer Solutions Teammate Name Role Phone Omar Allison [phone] Reason For Referral No Information Plan Of Treatment No Information
== END 2025-03-15 09:41 | disposition home or self-care (01) ==
LOC: HO.HMCC 09:02
PROVIDERS: PCP Internal Medicine; Visit Provider Internal Medicine
DX: G47.9 Sleep disorder, unspecified (principal); R73.01 Impaired fasting glucose; E78.9 Disorder of lipoprotein metabolism, unspecified; I10 Essential (primary) hypertension; F41.1 Generalized anxiety disorder; M12.9 Arthropathy, unspecified

== ENCOUNTER → 2025-03-15 09:01 | Outpatient (BNVA) | payer MEDICARE, SELFPAY | PROVIDERS: PCP Internal Medicine; Visit Provider Internal Medicine | DX: I10 Essential (primary) hypertension (principal); M79.605 Pain in left leg; M79.604 Pain in right leg; M54.9 Dorsalgia, unspecified; E78.5 Hyperlipidemia, unspecified; R73.01 Impaired fasting glucose; F41.1 Generalized anxiety disorder; M12.9 Arthropathy, unspecified | CPT/HCPCS: 96127; 99212 ==

== ENCOUNTER 2025-03-31 17:24 | Emergency (ER) | payer MEDICARE, SELFPAY ==
--- NOTE | ~2025-03-31 | CT_ITS ---
CLINICAL HISTORY: fall with head strike, occipital lac, broken glass CT head without contrast Comparison: None provided Findings: BRAIN: No acute infarct, hemorrhage, or mass effect. Scattered periventricular/deep white matter hypodensities, nonspecific, however may represent chronic microvascular ischemic disease. CSF SPACES: No hydrocephalus or effacement of basal cisterns. SKULL: No calvarial fracture. SINUSES: No significant mucosal thickening or effusion on limited views. ORBITS: Limited views are unremarkable. OTHER: Negative. IMPRESSION: 1. No acute intracranial findings. This document has been electronically signed by: Kathy Dixon MD on 03/31/2025 19:20:08
--- NOTE | ~2025-03-31 | XR_ITS ---
CLINICAL HISTORY: laceration with broken glass c f FB 3 view right elbow Comparison: None provided Findings: Bones intact. No dislocations. No significant arthritic change or erosions. No joint effusion. No radiopaque foreign body. IMPRESSION: 1. No acute findings. This document has been electronically signed by: Loulou Ozuna MD on 03/31/2025 18:45:35
[2025-03-31 17:36] VITALS: BP 187/86; PULSE 68; RESP 20; TEMP 36.5; O2SAT 98; BMI 24.1
--- NOTE | 2025-03-31 17:38 | ED_ITS ---
HPI - General Adult General Chief complaint: Fall Stated complaint: head injury (fall) Time Seen by Provider: 03/31/25 20:35 Source: patient, family, RN notes reviewed and old records reviewed Mode of arrival: ambulatory Limitations: no limitations History of Present Illness ED Provider: Minal BROWNING narrative: 84-year-old female with a past medical history significant for peripheral vascul ar disease, hyperlipidemia, hypertension presents for evaluation after a fall. The patient was working in her green house. She reports that she bent over to pick something up when she fell down. She struck the back of the head with a piece of glass. She has a with a cut to her right elbow. She denies loss of consciousness. She is not anticoagulated. She has some pain to the right elbow Denies any dizziness, chest pain, shortness of breath Related Data Previous Rx's ?Medication ?Instructions ?Recorded lisinopril 10 mg tablet 10 mg PO DAILY #90 tabs 11/22 11/14 atorvastatin 20 mg tablet 20 mg PO DAILY 90 days #90 t abs 03/15/25 cholecalciferol (vitamin D3) 50 50 mcg PO DAILY #90 ca ps 03/15/25 mcg (2,000 unit) capsule zolpidem 10 mg tablet 10 mg PO BEDTIME PRN sleep # 30 tabs 03/15/25 Allergies Allergy/AdvReac Type Severity Reaction Status Date / Time No Known Allergies Allergy Verified 03/31/25 17:43 Review of Systems Constitutional: Constitutional: Denies body ache(s), Denies chills, Denies fever(s), Denies frequent falls and Reports headache(s) Eyes: Eyes: Denies blurry vision and Denies irritation ENT: Denies vertigo, Denies dizziness and Reports headache(s) Cardiovascular: Cardiovascular: Denies chest pain, Denies chest pain at rest, Denies chest pain with activity and Denies dyspnea on exertion Respiratory: Respiratory: Denies cough and Denies dyspnea on exertion Gastrointestinal: Gastrointestinal: Denies abdominal pain, Denies nausea and Denies vomiting Musculoskeletal: Musculoskeletal: Denies back pain and Reports arthralgias Integumentary/Breasts: Skin/Breast: Denies rash and Reports wounds Neurologic: Denies vertigo, Denies dizziness, Denies frequent falls and Reports headache(s) [facility] Past Medical History Medical History Varicose veins of right lower extremity with pain Difficulty sleeping Menopause Dyslipidemia Essential hypertension Surgical History Hx of colonoscopy Hx of esophagogastroduodenoscopy Hx of vein stripping History of back surgery H/O: hysterectomy Family History Family History Father No problems noted. Mother No problems noted. Social History Social History Housing: House Alcohol intake: never Patient Tobacco Use Status: Never used Tobacco Smoked in Last 30 Days: No e-Cigarette/Vaping Use: Never Used Use of substances other than those prescribed or required for medical reasons: No Advance Directives: No Advance Directives Information Provided: Yes service: No Current occupational status: retired Cognitive needs: No Hearing needs: No Vision needs: Yes Physical Exam ED Vital Signs: Vital Signs - 24 hr 03/31/25 17:36 03/31/25 20:27 03/31/25 22:14 Temperature 97.7 F 98.3 F 98.3 F Pulse Rate 68 63 63 Respiratory Rate 20 16 16 Blood Pressure 187/86 H 159/64 H 159/64 H Pulse Oximetry 98 99 99 Oxygen Delivery Method Room Air Room Air Room Air BMI result Body Mass Index 24.1 Const General: healthy appearing, comfortable, no acute distress, alert and awake Nutritional Appearance: well nourished Orientation/consciousness: patient oriented x3 HENMT Other: Posterior scalp laceration Eyes Eyelids: Yes eyelids normal Conjunctivae: conjunctivae normal Sclerae: sclerae normal Corneas: corneas normal Pupils: Equal, round and reactive pupils present EOM: EOMs intact bilaterally Neck Neck: Yes full ROM Resp Effort & Inspection: normal respiratory effort, able to speak in complete sentences and not labored GI Inspection: No distended Palpation (GI): Soft to palpation, not firm, nontender, no guarding and not rigid Skin General skin exam: elasticity normal Neuro General: patient oriented x3 Cranial nerves: Yes Equal, round and reactive pupils present and Yes Bilaterally intact EOM present Cognition (Neuro): normal cognition Extrem Other: There is a small, L-shaped laceration to the right medial elbow. No active bleeding. The patient has full range of motion with flexion-extension of the right elbow as well as pronation supination limited upper extremity. Course Course Course Narrative: This is a rapid medical exam performed by Augustin Huffman NP: Additional HPI, ROS, PE not included below will be deferred to primary provider. Patient is an 84y/o F presenting to the ED with complaint of occipital laceration as well as lacerations to right elbow after a fall last night. States she was in her greenhouse bending over, stood up and lost her balance and fell, which caused the glass to break. She is not anticoagulated, denies LOC. Unsure last tdap. Plan: CT head, elbow xray Medications Administered Discontinued Medications Generic Name Dose Route Start Last Admin Trade Name Freq PRN Reason Stop Dose Admin Diphtheria/Tetanus/Acell Pertussis 0.5 ml 03/31/25 17:44 03/31/25 21:41 Diphth,Pertus(Acell),Tet Adult 0.5 Ml Syringe IM 03/31/25 17:45 0.5 ml .ONCE ONE Administration Lidocaine/Epinephrine 10 ml 03/31/25 20:50 03/31/25 21:41 Lidocaine Hcl 1%/Epi 1:100,000 10 Ml Vial INFILTRATI 03/31/25 20:51 10 ml ONCE ONE Administration Procedures Laceration posterior scalp: Site: scalp Size (cm): 4 Description: linear and irregular Depth: simple, single layer Local Anesthetic: lidocaine 1% and with epi Amount of anesthesia used (mL): 4 Pre-repair: wound explored, irrigated extensively and deep structures intact Skin layer closed with: venecia (8) Number of closing items:: 8 right elbow: Site: upper extremity Side (If applicable): right Size (cm): 3 Description: linear and flap Depth: simple, single layer Local Anesthetic: lidocaine 1% and with epi Amount of anesthesia used (mL): 3 Pre-repair: wound explored, irrigated extensively and deep structures intact Skin layer closed with: nylon Size (cm): 4-0 Number of sutures: 5 Technique: simple, interrupted Medical Decision Making Medical Decision Making MDM Narrative: 84-year-old female presents for evaluation of very nonsyncopal fall. She has sustained a head injury and a laceration to her right arm. A CT scan of the brain was performed which shows no intracranial hemorrhage. X-ray of the right elbow is negative for fracture. See procedure note for wound repair. We will trial ambulation to see if the patient would benefit from a flu-like B/case management evaluation. Given the lack of prodrome prior to her fall in the factors nonsyncopal fall, labs and EKG were not ordered. Differential Diagnosis Differential Diagnoses: The differential diagnosis associated with the presentation includes Nonsyncopal fall Head laceration Contusion Concussion Intracranial hemorrhage Laceration Elbow fracture Elbow sprain Independent Interpretation I performed an independent interpretation of an: CT Scan Interpretation: Agree with Radiology interpretation Radiology Impression Discussion of test interpretation with radiology: I have reviewed the radiologist's reading. Radiologist Impression: Findings: BRAIN: No acute infarct, hemorrhage, or mass effect. Scattered periventricular/deep white matter hypodensities, nonspecific, however may represent chronic microvascular ischemic disease. CSF SPACES: No hydrocephalus or effacement of basal cisterns. SKULL: No calvarial fracture. SINUSES: No significant mucosal thickening or effusion on limited views. ORBITS: Limited views are unremarkable. OTHER: Negative. IMPRESSION: 1. No acute intracranial findings. This document has been electronically signed by: Kathy Dixon MD on 03/31/2025 19:20:08 Findings: Bones intact. No dislocations. No significant arthritic change or erosions. No joint effusion. No radiopaque foreign body. IMPRESSION: 1. No acute findings. This document has been electronically signed by: Loulou Ozuna MD on 03/31/2025 18:45:35 Discharge Plan Discharge Clinical Impression: Fall, Laceration of scalp, Laceration of elbow, right Patient Disposition: Home, Self-Care Instructions: Laceration (ED) Additional Instructions: You had 2 lacerations repaired today. You had 8 venecia placed to the back of your head/scalp. He had 5 sutures placed to the right elbow. These can both be removed in 7-10 days Keep the area clean and dry. The CT scan of the brain did not show any significant traumatic injuries pain The x-ray of your elbow did not show any fractures or dislocation. Follow up with your primary doctor, return for new or worsening symptom Prescriptions: No Action lisinopril 10 mg tablet 10 mg PO DAILY Qty: 90 2RF atorvastatin 20 mg tablet 20 mg PO DAILY 90 Days Qty: 90 1RF cholecalciferol (vitamin D3) 50 mcg (2,000 unit) capsule 50 mcg PO DAILY Qty: 90 0RF zolpidem 10 mg tablet 10 mg PO BEDTIME PRN (Reason: sleep) Qty: 30 0RF Interventions: ED Discharge Assessment Last Done: 03/31/25 22:14 Discharge Date/Time: 03/31/25 22:15 Print Language: English
[2025-03-31 20:27] VITALS: BP 159/64; PULSE 63; RESP 16; TEMP 36.8; O2SAT 99
[2025-03-31] MEDS: Lidocaine HCl 1%/Epi 1:100,000 10 ML VIAL INFILTRATI (21:41)
[2025-03-31] MEDS: Diphth,Pertus(ACell),Tet Adult 0.5 ML SYRINGE IM (21:41)
[2025-03-31 22:14] VITALS: BP 159/64; PULSE 63; RESP 16; TEMP 36.8; O2SAT 99
== END 2025-03-31 22:15 | disposition home or self-care (01) ==
PROVIDERS: Emergency Provider Emergency Medicine
DX: S01.01XA Laceration without foreign body of scalp, initial encounter (principal); S51.011A Laceration without foreign body of right elbow, initial encounter; W01.110A Fall on same level from slipping, tripping and stumbling with subsequent striking against sharp glass, initial encounter; Y93.H2 Activity, gardening and landscaping; Y92.096 Garden or yard of other non-institutional residence as the place of occurrence of the external cause; Y99.8 Other external cause status; I10 Essential (primary) hypertension
CPT/HCPCS: 70450; 73070; 90471; 90715; 99284; J2004

== ENCOUNTER → 2025-03-31 17:43 | Outpatient (BNV) | payer MEDICARE, SELFPAY | PROVIDERS: Visit Provider Radiology Diagnostic Radiology | DX: S01.02XA Laceration with foreign body of scalp, initial encounter (principal); S51.021A Laceration with foreign body of right elbow, initial encounter; W01.0XXA Fall on same level from slipping, tripping and stumbling without subsequent striking against object, initial encounter | CPT/HCPCS: 70450; 73070 ==

== ENCOUNTER 2025-04-08 10:58 | Outpatient (AMB) | payer MEDICARE, SELFPAY ==
--- OUTSIDE RECORDS SUMMARY | 2025-03-31 12:30 | XMS_ITS | Encounter Summary ---
Author Organization [employer] Address [address] [place] [address] Care Team Providers Care Winding Operator Name Role Phone Unavailable Primary Care Provider Unavailabl e Encounter Details Date Type Department Care Team (Late st Contact Info) Description 03/31/2025 12:30 PM EDT Immunization [facility] [address] [place] [address] Maile Dale RN Encounter for immunization Social History Tobacco Use Types Packs/Day Years Used Date Smoking Tobacco: Never Assessed Comments Unknown Sex and Gender Information Value Date Recorded Sex Assigned at Female 03/31/2025 3:54 PM EDT Legal Sex Female 3:53 PM EDT Gender Identity Female 03/31/2025 3:54 PM EDT Sexual Orientation Straight 03/31/2025 3: 54 PM EDT documented as of this encounter Progress Notes * Maile Dale RN - 03/31/2025 12:30 PM EDT Subjective Patient ID: Lexi Eason is a 84 y.o. female who presents for Flu Vaccine. Pt here for Flu vaccine. Per record and patient reporting indicate that patient has no allergies that contraindicate today's vaccinations. Vaccine administered in [facility]. Pt tolerated well, pt willstay for observation for 15minutes post vaccination for observation by nurse. documented in this encounter Plan of Treatment Not on file documented as of this encounter Visit Diagnoses Diagnosis Encounter for immunization documented in this encounter
[2025-04-08 11:08] VITALS: BP 114/62; PULSE 65; TEMP 36.3; O2SAT 98; BMI 24.0
--- NOTE | 2025-04-08 11:08 | MHC.OFFWIV ---
Intake Vital Signs 04/08/25 11:08 Height 5 ft 1 in Weight 127 lb BMI 24.0 BP 114/62 Blood Pressure Location Lt brachial Position Sitting Pulse 65 Pulse Source Pulse Oximeter Temp 97.4 F Temp Source Oral Pulse Oximetry (%) 98 Oxygen Delivery Method Room Air Intake Visit Reasons: EP-head venecia & rt arm stiches removal Patient Tobacco Use Status: Never used Tobacco Allergies No Known Allergies Allergy (Verified 03/31/25 17:43) Do you need a note to return to daycare/school/sports/work: No HPI HPI Comments History of Present Illness Details This is a 84-year-old female who presented to the walk-in clinic for suture/staple removal. Patient was evaluated in the emergency room on 03/31/2025 following a fall. She had 8 venecia placed to her posterior skull as well as 5 sutures placed her posterior right elbow. She was instructed to have the sutures/venecia removed in 7-10 days. Patient denies any erythema surrounding the lacerations and denies any purulent/bloody drainage. She is otherwise feeling well without any new complaints. [facility] Medical History Varicose veins of right lower extremity with pain Difficulty sleeping Menopause Dyslipidemia Essential hypertension Surgical History Hx of colonoscopy Hx of esophagogastroduodenoscopy Hx of vein stripping History of back surgery H/O: hysterectomy Family History Father No problems noted. Mother No problems noted. Social History Housing: House Alcohol intake: never Patient Tobacco Use Status: Never used Tobacco e-Cigarette/Vaping Use: Never Used service: No Current occupational status: retired Cognitive needs: No Hearing needs: No Vision needs: Yes Review of Systems Const All systems reviewed & are unremarkable except as noted in HPI and below Reports no additional complaints Eyes Reports no additional complaints ENT Reports no additional complaints Card Reports no additional complaints Resp Reports no additional complaints GI Reports no additional complaints Reports no additional complaints Musc Reports no additional complaints Skin/Breast Reports system reviewed and no additional complaints, except as documented Neuro Reports no additional complaints Psych Reports no additional complaints Endo Reports no additional complaints Panfilo/Lymph Reports no additional complaints Aller/Immun Reports no additional complaints Physical Exam Exam Exam: Vital signs reviewed. Constitutional: Non-toxic appearing. No acute distress. Well-developed and well-nourished. HEENT: There is an approximately 4 cm laceration to the posterior scalp with [address] with overlying dried/crusted blood but without any surrounding erythema or purulent drainage or active bleeding. There is a smaller L-shaped laceration to the posterior right elbow with [address] with overlying dried/crusted blood but without any surrounding erythema or purulent drainage or active bleeding. Skin: Warm and dry. No rashes or lesions noted. See above. Neck: Full and painless range of motion. No cervical lymphadenopathy. Cardio: Regular rate. Pulmonary: No respiratory distress. No accessory muscle usage. Musculoskeletal: Normal range of motion of the right elbow with flexion/extension as well as pronation/supination of the right wrist. Neuro: Alert and oriented x4. Cranial nerves 2-12 grossly intact. No focal deficits appreciated. Psych: Normal mood and affect. Vital Signs: Last Vital Signs Temp 97.4 F 04/08/25 11:08 Pulse 65 04/08/25 11:08 BP 114/62 04/08/25 11:08 Pulse Ox 98 04/08/25 11:08 Oxygen Delivery Method Room Air 04/08/25 11:08 BMI result Body Mass Index 24.0 Assessment & Plan Assessment & Plan (1) Encounter for removal of sutures: Code(s): Z48.02 - Encounter for removal of sutures (2) Encounter for staple removal: Code(s): Z48.02 - Encounter for removal of sutures Plan 84-year-old female who presented to the walk-in clinic for suture/staple removal. Patient had 8 venecia placed to the posterior scalp and 5 sutures placed to the posterior right elbow on 03/31/2025. On physical examination, the lacerations appear to be well healed with overlying dried blood but without any surrounding erythema or purulent drainage. The 8 venecia to the posterior scalp were removed in their entirety without difficulty in the 5 sutures to the right elbow were removed in their entirety without difficulty. Patient tolerated the procedure well. Patient was instructed to keep the areas clean with soap and water and she can apply bacitracin ointment to the areas to prevent infection. Coding Level of Care Code Est Pt Level 3 (08893) Diagnoses Encounter for removal of sutures Z48.02 Encounter for staple removal Z48.02
--- OUTSIDE RECORDS SUMMARY | 2025-04-08 13:36 | XMS_ITS | Patient Health Record ---
Author Organization [facility] Address [address] [place] [address] Care Team Providers Care Dispatch Associate Name Role Phone mOar Allison [phone] Reason For Referral No Information Plan Of Treatment No Information
--- OUTSIDE RECORDS SUMMARY | 2025-04-08 13:37 | XMS_ITS | Clinical Summary ---
Author Organization [facility] Address [address] [place] [address] Care Team Providers Care Event Marketing Specialist Name Role Phone Unavailable Primary Care Provider Unavailabl e Encounters Date Type Department Care Team Description 03/31/2025 12:30 PM EDT Immunization [facility] [address] [place] [address] Maile Dale RN Encounter for immunization from Last 3 Months Immunizations Immunization Administration Dates Next Due Influenza, High Dose Seasonal, Preservative Free 03/31/2025 Social History Tobacco Use Types Packs/Day Years Used Date Smoking Tobacco: Never Assessed Comments Unknown Sex and Gender Information Value Date Recorded Sex Assigned at Female 03/31/2025 3:54 PM EDT Legal Sex Female 3:53 PM EDT Gender Identity Female 03/31/2025 3:54 PM EDT Sexual Orientation Straight 03/31/2025 3: 54 PM EDT Plan of Treatment Health Maintenance Due Date Last Done Comments Depression Screening 1940 SDOH Screening 1941 Alcohol/Substance Use Screening 1953 Tobacco Screening 1952 DTaP/Tdap/Td Vaccines (1 - Tdap) 1960 Pneumococcal Vaccine: 50+ Ye ars (1 of 1 - PCV) 1991 Zoster Vaccines (1 of 2) 1991 RSV Patients and Pa tients Aged 60 years or older (1 - 1-dose 75+ series) 2016 COVID-19 Vaccine ( - 2023-2 5 season) 2025 Influenza Vaccine Completed 03/31/2025 HIB Vaccines Aged Out No longer eligi ble based on patient's age to complete this topic HPV Vaccines Aged Out No longer eligi ble based on patient's age to complete this topic Hepatitis A Vaccines Aged Out No long er eligible based on patient's age to complete this topic Hepatitis B Vaccines Aged Out No long er eligible based on patient's age to complete this topic IPV Vaccines Aged Out No longer eligi ble based on patient's age to complete this topic Meningococcal B Vaccine Aged Out No l onger eligible based on patient's age to complete this topic Meningococcal Vaccine Aged Out No amanda vinay eligible based on patient's age to complete this topic RSV under 20 months Aged Out No longe r eligible based on patient's age to complete this topic Rotavirus Vaccines Aged Out No longer eligible based on patient's age to complete this topic Insurance [employer]
== END 2025-04-08 11:57 | disposition home or self-care (01) ==
PROVIDERS: Visit Provider Physician Assistant Medical
DX: S51.011A Laceration without foreign body of right elbow, initial encounter (principal); S01.01XA Laceration without foreign body of scalp, initial encounter; Z48.02 Encounter for removal of sutures

== ENCOUNTER → 2025-04-08 10:58 | Outpatient (BNVA) | payer MEDICARE, SELFPAY | PROVIDERS: Visit Provider Physician Assistant Medical | DX: S01.01XD Laceration without foreign body of scalp, subsequent encounter (principal); S51.011D Laceration without foreign body of right elbow, subsequent encounter; X58.XXXD Exposure to other specified factors, subsequent encounter; Z48.02 Encounter for removal of sutures | CPT/HCPCS: 99212 ==